=== PATIENT | female | born 1990 | race Two or more races ===

== ENCOUNTER 2021-10-14 13:09 | Outpatient (REF) | payer OTHER, SELFPAY ==
[2021-10-14 13:51] LABS: Hematocrit 42.3 % (37.0-47.0); Hemoglobin 14.1 g/dl (12.0-16.0); Mean Corpuscular HGB Conc 33.3 g/dl (31.0-35.0); Mean Corpuscular Hemoglobin 29.3 pg (27.0-33.0); Mean Corpuscular Volume 87.9 fL (80.0-98.0); Mean Platelet Volume 9.5 fL (9.4-12.3); Platelet Count 298 X10*3/uL (160-400); Red Blood Count 4.81 X10*6/uL (4.20-5.50); Red Cell Distribution Width 13.3 % (11.0-16.0); White Blood Count 5.2 X10*3/uL (4.8-10.8)
[2021-10-14 14:12] LABS: Alanine Aminotransferase 15 U/L (0-31); Albumin Level 4.5 g/dL (3.5-5.0); Alkaline Phosphatase 74 U/L (39-117); Anion Gap 11 (12-20); Aspartate Amino Transferase 14 U/L (5-31); Bilirubin Total 0.6 mg/dL (0.0-1.0); Blood Urea Nitrogen 16 mg/dL (9-16); Calcium 9.7 mg/dL (8.4-10.2); Carbon Dioxide 27 mmol/L (22-29); Chloride 103 mmol/L (96-108); Estimated Glomerular Filt Rate > 60; Glucose Random 96 mg/dL (60-115); Potassium 3.6 mmol/L (3.3-5.1); Sodium 137 mmol/L (135-145); Total Protein 7.7 g/dL (6.5-8.0)
== END 2021-10-14 13:10 | disposition home or self-care (01) ==
LOC: HO.HMGCLDS 13:09
PROVIDERS: PCP Internal Medicine; Visit Provider Physician Assistant
DX: R42 Dizziness and giddiness (principal)
CPT/HCPCS: 36415; 80053; 84443; 85027

== ENCOUNTER 2022-03-08 11:10 | Outpatient (REF) | payer OTHER, SELFPAY ==
[2022-03-09 04:41] LABS: HBS Num1 108.52 mIU/mL (0-7.99); ~Hepatitis B Surface Antibody REACTIVE (Nonreactive)
[2022-03-10 00:37] LABS: Rubella IgG Antibody 5.81 Index
== END 2022-03-08 11:11 | disposition home or self-care (01) ==
LOC: HO.HMGCLDS 11:10
PROVIDERS: PCP Internal Medicine; Visit Provider Internal Medicine
DX: Z02.1 Encounter for pre-employment examination (principal)
CPT/HCPCS: 36415; 86706; 86735; 86762; 86765

== ENCOUNTER → 2022-10-25 09:05 | Outpatient (REF) | payer OTHER, SELFPAY | LOC: HO.SL 09:05 | PROVIDERS: PCP Internal Medicine; Visit Provider Internal Medicine | DX: G47.30 Sleep apnea, unspecified (principal) | CPT/HCPCS: 95806 ==

== ENCOUNTER 2023-06-06 12:25 | Outpatient (AMB) | payer OTHER, SELFPAY ==
--- NOTE | 2023-06-06 14:52 | AM.OFFWIN_ITS ---
Intake Vital Signs 06/06/23 14:59 Height 51 ft Weight 190 lb BMI 0.4 BP 120/70 Blood Pressure Location Lt brachial Position Sitting Pulse 76 Pulse Source Pulse Oximeter Temp 97.8 F Temp Source Temporal Artery Scan Pulse Oximetry (%) 98 Oxygen Delivery Method Room Air Intake Visit Reasons: EST/dizziness, headaches (lobby) Intake Note: pt is here for c/o dizziness, headaches. patient was evaluated in ED, they told her she needed to follow up with her pcp and she came to walk in Patient Tobacco Use Status: Never used Tobacco Allergies kiwi Allergy (Intermediate, Verified 06/11/23 16:55) throat itching, tongue swelling doxycycline [DOXYCYCLINE] Allergy (Unknown, Verified 06/11/23 16:55) HIVES penicillin V Allergy (Unknown, Verified 06/11/23 16:55) hives Penicillins [PENICILLINS] Allergy (Unknown, Verified 06/11/23 16:55) HIVES Sulfa (Sulfonamide Antibiotics) Allergy (Unknown, Verified 06/11/23 16:55) rash sulfamethoxazole [From BACTRIM] Allergy (Unknown, Verified 06/11/23 16:55) HIVES trimethoprim [From BACTRIM] Allergy (Unknown, Verified 06/11/23 16:55) HIVES Medication List - Last Reconciled 06/11/23 by Deniz Palm MD meclizine 12.5 mg PO TID PRN Do you need a note to return to daycare/school/sports/work: Yes HPI EST/dizziness, headaches (lobby) HPI Details 32-[facility]-old [facility] She was seen in the emergency room at [facility] yesterday. She went to the hospital after she reports she had a seizure. She reports that her seizure was witnessed. Was seen in the [facility] emergency room. A CT scan and routine blood work was unremarkable. She was given a appointment with [facility] urology and discharged. Patient reports that she is continuing to feel dizzy and tired. Because of her new diagnosis she cannot drive. 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 [facility] Medical History Dyshidrotic eczema Kidney stones Lumbar back pain Sleep apnea Family History Mother Diabetes Father Diabetes HTN (hypertension) Maternal Grandmother CVD (cardiovascular disease) Maternal Grandfather Alzheimer disease Social History Household Members Other:: 3 children, 6 yr, 3 yr 2 month old baby Housing: Apartment Alcohol intake: current Alcohol intake frequency: does not drink Patient Tobacco Use Status: Never used Tobacco e-Cigarette/Vaping Use: Never Used Current occupational status: employed Cognitive needs: No Hearing needs: No Vision needs: Yes Physical Exam Vital Signs: Last Vital Signs Temp 97.8 F 06/06/23 14:59 Pulse 76 06/06/23 14:59 BP 120/70 06/06/23 14:59 Pulse Ox 98 06/06/23 14:59 Oxygen Delivery Method Room Air 06/06/23 14:59 BMI result Body Mass Index 0.4 Const General: cooperative and healthy appearing Nutritional Appearance: well nourished Orientation/consciousness: patient oriented x3 Limitations: no limitations HEENT Head: Yes normal to inspection Eyes General: appearance normal, both eyes and all related structures Neck Neck: Yes normal visual inspection Chest Chest palpation & inspection: normal palpation of entire chest wall Resp Effort & Inspection: normal respiratory effort Neuro General: patient oriented x3 Cranial nerves: Yes CN's II-XII intact bilaterally Gait exam (Neuro): Normal gait present Motor exam (neuro): 5/5 motor strength present throughout Deep tendon reflexes (DTR's): Right triceps reflex intensity grade: 2+, Left triceps reflex intensity grade: 2+, Rt Biceps (C5, C6): 2+, Left biceps reflex intensity grade: 2+, Right patellar reflex intensity grade: 2+, Left patellar reflex intensity grade: 2+, Right ankle reflex intensity grade: 2+ and Left ankle reflex intensity grade: 2+ Assessment & Plan Assessment & Plan (1) Vertigo: Code(s): R42 - Dizziness and giddiness Plan: Her repeat neurological exam was unremarkable. Patient was advised to follow-up with [facility] neurology. She was encouraged to follow-up with her primary care for decision making regarding her work and ability to drive. Coding Level of Care Code Est Pt Level 3 (45286) Diagnoses Vertigo R42
[2023-06-06 14:59] VITALS: BP 120/70; PULSE 76; TEMP 36.6; O2SAT 98
== END 2023-06-06 16:10 | disposition home or self-care (01) ==
PROVIDERS: PCP Internal Medicine; Visit Provider Internal Medicine
DX: R42 Dizziness and giddiness (principal)
CPT/HCPCS: 99213

== ENCOUNTER 2023-06-19 08:30 | Outpatient (AMB) | payer OTHER, SELFPAY ==
[2023-06-19 08:34] VITALS: BP 110/70; PULSE 100; O2SAT 98; BMI 37.3
--- NOTE | 2023-06-19 08:34 | A.OFFPC_ITS ---
Vital Signs 06/19/23 08:34 Height 5 ft Weight 191 lb BMI 37.3 BP 110/70 Blood Pressure Location Lt brachial Position Sitting Pulse 100 Pulse Source Pulse Oximeter Pulse Oximetry (%) 98 Oxygen Delivery Method Room Air Intake Visit Reasons: [employer], Seizure like activities, 06/03 Intake Note: Pt is here today for ER follow up visit. Allergies kiwi Allergy (Intermediate, Verified 06/19/23 08:36) throat itching, tongue swelling doxycycline [DOXYCYCLINE] Allergy (Unknown, Verified 06/19/23 08:36) HIVES penicillin V Allergy (Unknown, Verified 06/19/23 08:36) hives Penicillins [PENICILLINS] Allergy (Unknown, Verified 06/19/23 08:36) HIVES Sulfa (Sulfonamide Antibiotics) Allergy (Unknown, Verified 06/19/23 08:36) rash sulfamethoxazole [From BACTRIM] Allergy (Unknown, Verified 06/19/23 08:36) HIVES trimethoprim [From BACTRIM] Allergy (Unknown, Verified 06/19/23 08:36) HIVES Medication List - Last Reconciled 06/19/23 by Luci Ny MD meclizine 12.5 mg PO TID PRN Tobacco use date assessed: 06/19/23 Dental Screening Dental Screen Date: 06/19/23 Did you have a dental visit in the last 12 months?: Yes Did you have a dental problem in the last 6 months where you did not have access to dental care?: No Was dental information given to patient?: Patient has dentist HPI [facility], Seizure like activities, 06/03 HPI Details Pt presents for f/u of [facility] ER visit. Pt had an episode of unresponsiveness and shakiness while sitting playing michelle lasted a few mins witnessed by her friend. She denies fall,head trauma, control loss of bowel or bladder. Patient fell the headache before the episode and some nausea after the episode. ER workup including brain CT basic labs EKG were normal. Patient has not had any recurrent symptoms for the last 2 weeks. 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 Patient called [facility] Neurology office to schedule an appointment but was advised to have brain MRI, EEG and Holter before the visit [facility] Medical History Dyshidrotic eczema Kidney stones Lumbar back pain Sleep apnea Family History Mother Diabetes Father Diabetes HTN (hypertension) Maternal Grandmother CVD (cardiovascular disease) Maternal Grandfather Alzheimer disease Household Members Other:: 3 children, 6 yr, 3 yr 2 month old baby Housing: Apartment Alcohol intake: current Alcohol intake frequency: does not drink Patient Tobacco Use Status: Never used Tobacco e-Cigarette/Vaping Use: Never Used Current occupational status: employed Cognitive needs: No Hearing needs: No Vision needs: Yes Questionnaire Thrive Questionnaire Date Thrive assessed: 10/21/21 I am a: Patient What is your living situation today?: I have a steady place to live Within the past 12 months, did the food you bought not last and you didn't have the money to get more?: Never true Within the past 12 months, did you worry whether your food would run out before you got money to buy more?: Sometimes True Please select the resources that you would like help with: None AUDIT C Alcohol Use Questionnaire (AUDIT-C) 1. How often do you have a drink containing alcohol?: 2-4 times a month 2. How many drinks containing alcohol do you have on a typical day when you are drinking?: 1 or 2 3. How often do you have six or more drinks on one occasion?: Never Total Score: 2 DONTRELL-7 AMB Questionnaire DONTRELL-7 Date DONTRELL - 7 assessed: 10/21/21 Feeling nervous, anxious, or on edge: 1 = Several days Not being able to stop or control worryin = Several days Worrying too much about different things: 1 = Several days Trouble relaxin = Several days Being so restless that it is hard to sit still: 0 = Not at all Becoming easily annoyed or irritable: 1 = Several days Feeling afraid as if something awful might happen: 0 = Not at all Total DONTRELL-7 score (0-4 normal; 5-9 mild; 10-14 moderate; 15-21 severe): 5 Source: Developed by Drs. Benjamin Alvarez, Nanci Child, Oscar Dooley and colleagues, with an educational elizabeth from [employer]. Review of Systems Const All systems reviewed & are unremarkable except as noted in HPI and below Reports no additional complaints Eyes Reports no additional complaints ENT Reports no additional complaints Card Reports no additional complaints Resp Reports no additional complaints GI Reports no additional complaints Reports no additional complaints Physical exam (Primary Care) Vital Signs: Last Vital Signs Pulse 100 06/19/23 08:34 BP 110/70 06/19/23 08:34 Pulse Ox 98 06/19/23 08:34 Oxygen Delivery Method Room Air 06/19/23 08:34 BMI result Body Mass Index 37.3 Tobacco/Smoking Status: Tobacco use Status Tobacco use date assessed 06/19/23 06/19/23 08:38 Patient Tobacco Use Status Never used Tobacco 06/19/23 08:38 e-Cigarette/Vaping Use Never Used 06/19/23 08:34 Thrive Assessment: Date of Thrive Assessment Date Thrive assessed 10/21/21 06/19/23 08:34 Const General: no acute distress HENMT Ears: hearing grossly normal bilaterally Mouth: Normal oral and palatal mucosa present Eyes General: appearance normal, both eyes and all related structures Visual Fermin: normal visual fermin by confrontation EOM: EOMs intact bilaterally Neck Neck: Yes no lymphadenopathy and Yes supple Resp Effort & Inspection: normal respiratory effort Auscultation: clear to auscultation bilaterally Cardio Rhythm: regular rhythm Heart sounds: S1 normal heart sound present and S2 normal heart sound present GI Inspection: Yes normal to inspection Palpation (GI): Soft to palpation Percussion: Yes normal to percussion Auscultation: normal bowel sounds Neuro Cranial nerves: Yes CN's II-XII intact bilaterally Gait exam (Neuro): Normal gait present Motor exam (neuro): 5/5 motor strength present throughout Coordination: [id number] test normal Romberg Test: Negative Extrem General: Yes no clubbing, cyanosis or edema Assessment and Plan Assessment & Plan (1) Seizure: Code(s): R56.9 - Unspecified convulsions Plan: check brain MRI, EEG , Holter refer to neurlogy if positive Orders: Orders EEG awake and asleep Today R56.9 - Unspecified convulsions MR head/brain wo con Today R56.9 - Unspecified convulsions ECG 3 day holter monitor Today R56.9 - Unspecified convulsions Coding Level of Care Code Est Pt Level 4 (93738) Diagnoses Seizure R56.9
== END 2023-06-19 11:27 | disposition home or self-care (01) ==
PROVIDERS: PCP Internal Medicine; Visit Provider Internal Medicine
DX: R56.9 Unspecified convulsions (principal)
CPT/HCPCS: 99214

== ENCOUNTER 2023-06-27 07:53 | Outpatient (REF) | payer OTHER, SELFPAY ==
--- NOTE | 2023-06-27 07:56 | EEG_ITS ---
FINDINGS: The waking background activity consists of a moderate voltage, well-defined 10 hertz posterior alpha frequency intermixed anteriorly with low-voltage fast frequencies. No drowsiness or sleep stages are identified. Photic stimulation is without activation. Hyperventilation was performed with fair effort but no change in background activity. No focal, lateralizing, or paroxysmal discharges are seen. IMPRESSION: This waking EEG is within normal limits. MD JOSEPH Mosquera/MARY ELLEN / [id number]
== END 2023-06-27 07:54 | disposition home or self-care (01) ==
LOC: HO.NEURO 07:53
PROVIDERS: Visit Provider Internal Medicine
DX: R56.9 Unspecified convulsions (principal)
CPT/HCPCS: 95816

== ENCOUNTER 2023-08-04 11:39 | Outpatient (AMB) | payer OTHER, SELFPAY ==
[2023-08-04 11:42] VITALS: BP 104/66; PULSE 96; O2SAT 97; BMI 37.7
--- NOTE | 2023-08-04 11:42 | MHC.PC.OV ---
Vital Signs 08/04/23 11:42 Height 5 ft Weight 193 lb BMI 37.7 BP 104/66 Blood Pressure Location Rt brachial Position Sitting Pulse 96 Pulse Source Pulse Oximeter Pulse Oximetry (%) 97 Oxygen Delivery Method Room Air Intake Visit Reasons: Follow up FMLA Intake Note: Pt is here today for a follow up visit to have FMLA fill out. Allergies kiwi Allergy (Intermediate, Verified 08/04/23 11:44) throat itching, tongue swelling doxycycline [DOXYCYCLINE] Allergy (Unknown, Verified 08/04/23 11:44) HIVES penicillin V Allergy (Unknown, Verified 08/04/23 11:44) hives Penicillins [PENICILLINS] Allergy (Unknown, Verified 08/04/23 11:44) HIVES Sulfa (Sulfonamide Antibiotics) Allergy (Unknown, Verified 08/04/23 11:44) rash sulfamethoxazole [From BACTRIM] Allergy (Unknown, Verified 08/04/23 11:44) HIVES trimethoprim [From BACTRIM] Allergy (Unknown, Verified 08/04/23 11:44) HIVES Medication List - Last Reconciled 08/04/23 by Luci Ny MD meclizine 12.5 mg PO TID PRN Tobacco use date assessed: 08/04/23 Dental Screening Dental Screen Date: 08/04/23 Did you have a dental visit in the last 12 months?: Yes Did you have a dental problem in the last 6 months where you did not have access to dental care?: No Was dental information given to patient?: Patient has dentist HPI Follow up FMLA HPI Details Pt presents for follow-up of history of episode of unconsciousness question of seizure like activity on 06/03 followed by the visit to [facility] ER. Patient denies any recurrent symptoms of loss of consciousness but reports frequent symptoms of lightheadedness and vertigo like sensation and daily headaches. She has been taking meclizine with good relief in at least every other day. Pt had normal EEG, brain MR. Her insurance requested referral to Cardiology in order to cover extended Holter monitoring. Patient is waiting for an appointment with Cardiology. She has been out of work since May and not being able to drive a car because of ER recommendation. [facility] Medical History Dyshidrotic eczema Kidney stones Lumbar back pain Sleep apnea Family History Mother Diabetes Father Diabetes HTN (hypertension) Maternal Grandmother CVD (cardiovascular disease) Maternal Grandfather Alzheimer disease Social History Household Members Other:: 3 children, 6 yr, 3 yr 2 month old baby Housing: Apartment Alcohol intake: current Alcohol intake frequency: does not drink Patient Tobacco Use Status: Never used Tobacco e-Cigarette/Vaping Use: Never Used Current occupational status: employed Cognitive needs: No Hearing needs: No Vision needs: Yes Questionnaire PHQ-9 Over the last 2 weeks, how often have you been bothered by any of the following problems? 1. Little interest or pleasure in doing things: not at all 2. Feeling down, depressed, or hopeless: not at all 3. Trouble falling or staying asleep, or sleeping too much: more than half the days 4. Feeling tired or having little energy: more than half the days 5. Poor appetite or overeating: not at all 6. Feeling bad about yourself - or that you are a failure or have let yourself or your family down: not at all 7. Trouble concentrating on things, such as reading the newspaper or watching television: more than half the days 8. Moving or speaking so slowly that other people could have noticed. Or the opposite - being so fidgety or restless that you have been moving around a lot more than usual: not at all 9. Thoughts that you would be better off or of hurting yourself in some way: not at all Total score: 6 Depression Screening Interpretation: Negative Depression Screening Done: Yes Source: Developed by Drs. Benjamin Alvarez, Nanci Child, Oscar Dooley and colleagues, with an educational elizabeth from [email or web address]. Thrive Questionnaire Date Thrive assessed: 08/04/23 I am a: Patient What is your living situation today?: I have a steady place to live Within the past 12 months, did the food you bought not last and you didn't have the money to get more?: Never true Within the past 12 months, did you worry whether your food would run out before you got money to buy more?: Never true Do you have trouble paying for medicines?: No Do you have trouble getting transportation to medical appointments?: No Do you have trouble paying your heating and electricity bill?: No Do you have trouble taking care of your child, family member or friend?: No Do you have trouble with day-to-day activities such as bathing, preparing meals, shopping, managing finances, etc.?: No Are you currently unemployed and looking for a job?: No Are you interested in more education?: No Please select the resources that you would like help with: None AUDIT C Alcohol Use Questionnaire (AUDIT-C) 1. How often do you have a drink containing alcohol?: Monthly or less 2. How many drinks containing alcohol do you have on a typical day when you are drinking?: 1 or 2 3. How often do you have six or more drinks on one occasion?: Never Total Score: 1 DONTRELL-7 AMB Questionnaire DONTRELL-7 Date DONTRELL - 7 assessed: 08/04/23 Feeling nervous, anxious, or on edge: 1 = Several days Not being able to stop or control worryin = Several days Worrying too much about different things: 1 = Several days Trouble relaxin = Several days Being so restless that it is hard to sit still: 0 = Not at all Becoming easily annoyed or irritable: 1 = Several days Feeling afraid as if something awful might happen: 0 = Not at all Total DONTRELL-7 score (0-4 normal; 5-9 mild; 10-14 moderate; 15-21 severe): 5 Source: Developed by Drs. Benjamin Alvarez, Nanci Child, Oscar Dooley and colleagues, with an educational elizabeth from [email or web address]. Review of Systems Const All systems reviewed & are unremarkable except as noted in HPI and below Reports no additional complaints Eyes Reports no additional complaints ENT Reports no additional complaints Card Reports no additional complaints Resp Reports no additional complaints GI Reports no additional complaints Reports no additional complaints Physical exam (Primary Care) Vital Signs: Last Vital Signs Pulse 96 08/04/23 11:42 BP 104/66 08/04/23 11:42 Pulse Ox 97 08/04/23 11:42 Oxygen Delivery Method Room Air 08/04/23 11:42 BMI result Body Mass Index 37.7 Tobacco/Smoking Status: Tobacco use Status Tobacco use date assessed 08/04/23 08/04/23 11:47 Patient Tobacco Use Status Never used Tobacco 08/04/23 11:47 e-Cigarette/Vaping Use Never Used 08/04/23 11:47 PHQ-9: PHQ-9 Score PHQ-9: Total score 6 08/04/23 11:47 Depression Screening Interpretation: Negative Thrive Assessment: Date of Thrive Assessment Date Thrive assessed 08/04/23 08/04/23 11:47 Const General: no acute distress HENMT Ears: hearing grossly normal bilaterally General nose exam: Normal external nose present Face and sinus: Yes normal facial exam Mouth: Normal oral and palatal mucosa present Eyes General: appearance normal, both eyes and all related structures Neck Neck: Yes supple Resp Effort & Inspection: normal respiratory effort Auscultation: clear to auscultation bilaterally Cardio Rhythm: regular rhythm Heart sounds: S1 normal heart sound present and S2 normal heart sound present GI Inspection: Yes normal to inspection Palpation (GI): Soft to palpation Percussion: Yes normal to percussion Auscultation: normal bowel sounds Neuro General: CN's II-XI intact bilaterally Cognition (Neuro): normal cognition Gait exam (Neuro): Normal gait present Motor exam (neuro): 5/5 motor strength present throughout Romberg Test: Negative Assessment and Plan Assessment & Plan (1) Seizure: Comment: Short loss of consciousness 06/15,[facility] ER visit, EEG 07/15, brain MR 07/15 Code(s): R56.9 - Unspecified convulsions Plan: Refer to neurology for clearance to return back to work and driving. Out of work note until September 04 (2) Dizziness: Code(s): R42 - Dizziness and giddiness Plan: For recurrent episodes of vertigo patient will be referred to vestibular therapy. She was advised to maintain good hydration Orders: Orders PT Evaluation and Treatment Today R42 - Dizziness and giddiness Referrals Neurology Referral R42 - Dizziness and giddiness, R56.9 - Unspecified convulsions Coding Level of Care Code Est Pt Level 4 (18598) Diagnoses Seizure R56.9 Dizziness R42
== END 2023-08-04 12:20 | disposition home or self-care (01) ==
PROVIDERS: PCP Internal Medicine; Visit Provider Internal Medicine
DX: R56.9 Unspecified convulsions (principal); R42 Dizziness and giddiness
CPT/HCPCS: 99214

== ENCOUNTER 2023-08-18 12:35 | Outpatient (AMB) | payer OTHER, SELFPAY ==
--- NOTE | 2023-08-18 12:40 | A.OFFVIS_ITS ---
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 pt reports not having the palpitations at the moment. Gut Snatcher Required: No Accompanied by: Self / Same As Patient Allergies kiwi Allergy (Intermediate, Verified 08/04/23 11:44) throat itching, tongue swelling doxycycline [DOXYCYCLINE] Allergy (Unknown, Verified 08/04/23 11:44) HIVES penicillin V Allergy (Unknown, Verified 08/04/23 11:44) hives Penicillins [PENICILLINS] Allergy (Unknown, Verified 08/04/23 11:44) HIVES Sulfa (Sulfonamide Antibiotics) Allergy (Unknown, Verified 08/04/23 11:44) rash sulfamethoxazole [From BACTRIM] Allergy (Unknown, Verified 08/04/23 11:44) HIVES trimethoprim [From BACTRIM] Allergy (Unknown, Verified 08/04/23 11:44) HIVES Medication List - Last Reconciled 08/18/23 by TAHIR Cifuentes meclizine 12.5 mg PO TID PRN 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 Her evaluation showed no acute findings. Outpt MRI of brain was normal. She was referred to cardiology by PCP for report of heart palpitations. Today she presents for cardiology consultation. She reports no recurrent seizure type activity since her event in May. She tells me on the day of that event she was sitting at a table with her friend playing dominoes. She was experiencing a significant headache. She then remembers putting her head down and the next minute she was lifting her head up and her friend was looking at her in the face. Her friend witnessed body movements suggestive of seizure activity. Angelique was described as being pale. She remembers being weak and diaphoretic. Her ER evaluation revealed no significant findings. She tells me that for the whole next week she experienced lightheadedness and spent a lot of time in bed. Since then she has not had any recurrent events. She does have periodic dizziness which she believes is vertigo. She takes her meclizine and it helps. No chest discomfort at rest or with activity. No shortness of breath, presyncope, syncope, PND, orthopnea or edema. She feels intermittent heart palpitations like her heart is beating fast. It can last for minutes to hours. She is unsure of anxiety contributes. She has not had concerns that this was SVT. She has been going to the gym periodically and was using the treadmill. She noticed increased lightheadedness with treadmill walking. She stopped doing that and now uses the machines. 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 She has been out of work since May, since she can not drive for 6 months following a syncopal event. She tells me the brain MRI and EEG both came out normal. She has a neurology follow-up in October 2023. Nonsmoker, oc casional alcohol use. No family history of heart disease. [facility] Medical History Sleep apnea Lumbar back pain Dyshidrotic eczema Kidney stones Family History Mother Diabetes Father Diabetes HTN (hypertension) Maternal Grandmother CVD (cardiovascular disease) Maternal Grandfather Alzheimer disease Social History Household Members Other:: 3 children, 6 yr, 3 yr 2 month old baby Housing: Apartment Alcohol intake: current Alcohol intake frequency: does not drink Patient Tobacco Use Status: Never used Tobacco e-Cigarette/Vaping Use: Never Used Current occupational status: employed Cognitive needs: No Hearing needs: No Vision needs: Yes Review of Systems Const No All systems reviewed & are unremarkable except as noted in HPI and below Denies chills, Denies daytime sleepiness, Denies difficulty sleeping, Denies fatigue, Denies fever(s), Denies frequent falls, Denies weight gain and Denies weight loss Eyes Denies blurry vision, Denies change in vision, Denies loss of vision, Denies other visual disturbances and Denies eye pain ENT Denies dysphagia and Reports dizziness Card Denies chest pain, Denies chest pain at rest, Denies chest pain with activity, Denies syncope, Reports rapid heart rate, Denies leg edema, Reports lightheadedness, Denies dyspnea and Denies dyspnea on exertion Resp Denies cough, Denies dyspnea, Denies dyspnea on exertion and Reports other GI Denies abdominal pain, Denies dysphagia, Denies nausea and Denies vomiting Musc Denies back pain, Denies myalgias, Denies muscle weakness and Reports other Neuro Reports dizziness, Denies syncope, Denies frequent falls and Denies loss of vision Psych Denies anxiety Endo Denies fatigue Physical Exam Vital Signs: BMI result Body Mass Index 37.5 Const General: cooperative, healthy appearing, comfortable and no acute distress HEENT Head: Yes normal to inspection Neck Neck: Yes normal visual inspection and Yes no JVD Resp Effort & Inspection: normal respiratory effort Auscultation: clear to auscultation bilaterally, no rales, no rhonchi and no wheezes Cardio Jugular venous distension: no JVD Rate: regular rate Rhythm: regular rhythm Heart sounds: S1 normal heart sound present, S2 normal heart sound present, no gallops, no murmurs and no rubs Extrem General: Yes normal to inspection, No no pedal edema and No calf tenderness Psych Appearance: grossly normal Mental Status: mental status grossly normal Speech and movement: Normal speech and movement present Office Procedures EKG Details: Today, read me, normal sinus rhythm, right axis deviation, QTC 439 milliseconds, rate 69 [id number], Complete Assessment & Plan Assessment & Plan (1) Palpitations: Code(s): R00.2 - Palpitations Plan: Reports of heart palpitations like her heart is beating fast. No sudden start and stop of this sensation. It does not correlate with her lightheadedness. She did have seizure-type activity as above however EEG reported as normal. She is never had syncope in the past. ER note states this could be possible convulsive syncope. EKG done today showing normal sinus rhythm with no acute ST or T-wave abnormalities, normal PA, QRS and QTC intervals. Will check a Holter monitor to assess for any arrhythmia. Will check an echocardiogram to assess for any structural heart disease. Recommended good hydration, get adequate rest, physical activity as tolerated. Cardiology follow-up in 1 month, sooner if needed. (2) Dizziness: Code(s): R42 - Dizziness and giddiness Plan: Reports of intermittent lightheadedness. Patient has been previously diagnosed by another provider with vertigo. She does take meclizine as needed and tells me that it does help. She has not had any presyncope, syncope, falls. Continue current management (3) Vertigo: Code(s): R42 - Dizziness and giddiness Plan: As above (4) Seizure: Comment: Short loss of consciousness 06/15,[facility] ER visit, nl EEG 07/15, nl brain MR 07/15 Code(s): R56.9 - Unspecified convulsions Plan: As above Plan Time spent on chart review, documentation, interview assessment Orders: Orders ECG 3 day holter monitor Today R00.2 - Palpitations, R56.9 - Unspecified convulsions CA echo transthoracic complete Today R00.2 - Palpitations, R56.9 - Unspecified convulsions Coding Level of Care Code New Pt Level 4 (12924) Diagnoses Palpitations R00.2 Dizziness R42 Vertigo R42 Seizure R56.9 CPT Codes EKG - CPT: [id number], Complete ([id number]) Time Spent (min) 28
[2023-08-18 12:41] VITALS: BP 110/60; PULSE 69; BMI 37.5
== END 2023-08-18 13:14 | disposition home or self-care (01) ==
PROVIDERS: PCP Internal Medicine; Visit Provider Nurse Practitioner Family
DX: R00.2 Palpitations (principal); R42 Dizziness and giddiness; R56.9 Unspecified convulsions
CPT/HCPCS: 93010; 99204

== ENCOUNTER → 2023-08-18 12:35 | Outpatient (BNVA) | payer OTHER, SELFPAY | PROVIDERS: PCP Internal Medicine; Visit Provider Nurse Practitioner Family | DX: R00.2 Palpitations (principal); R42 Dizziness and giddiness; R56.9 Unspecified convulsions | CPT/HCPCS: 93005; 99202 ==

== ENCOUNTER → 2023-10-23 11:02 | Outpatient (REF) | payer OTHER, SELFPAY ==
--- NOTE | 2023-10-23 11:06 | CA_ITS ---
Transthoracic Echocardiogram Patient (Last, First, Middle): Angelique Borja, Gender: Female Date of : 1990 Age: 32 Procedure Date: 10/23/2023 Procedure Type: Transthoracic Echocardiogram Location: OP Height: 154.94 cm Weight: 86.18 kg BSA: 1.85 m2 Heart Rate: 78 bpm BP: 110 / 70 mmHg Revenue Cycle Consultant: TIFFANIE Logan MD: Shalini Hameed PUBLICITY PERSON-C University Registrar: Duran Suero MD Symptoms: R00.2 - Palpitations Study Quality: Fair ECG Rhythm: Sinus Conclusions: - Essentially normal study Findings Left Ventricle Normal left ventricular size, thickness, and systolic function. The visually estimated ejection fraction is between 55-60%. Diastolic function is normal for age. Prominent LVfalse tendon noted, normal variant. Peak GLS is 17.2%, borderline low. Right Ventricle Normal right ventricular cavity size and systolic function. Atria Both atria are normal in size. There is no evidence of interatrial shunt. Aortic Valve Normal aortic valve structure and function. There is no aortic valve stenosis. There is no aortic valve regurgitation. Mitral Valve Normal mitral valve structure and function. There is trace mitral valve regurgitation. There is no mitral valve stenosis. Pulmonic Valve The pulmonic valve is likely normal. Tricuspid Valve Normal tricuspid valve structure. Tricuspid regurgitation envelope is inadequate for calculation of right ventricular systolic pressure. Normal right atrial pressure. There is no evidence of pulmonary hypertension. Great Vessels All visible segments of the aorta are normal in size. The visualized portions of the pulmonary artery and branches are normal. Venous The inferior vena cava is normal in size and collapses greater than 50% with inspiration. Pericardium/Pleural There is no evidence of pericardial effusion. Prior Study Comparison No prior study available for comparison. Measurements 2D Linear Measurements IVSd: 0.90 0.6-0.9/0.6-1.0 cm LVIDd: 4.38 3.9-5.3/4.2-5.9 cm LVIDd Index: 2.37 2.4-3.2/2.2-3.1 cm/m2 LVIDs: 3.09 2.0-3.6 cm LVPWd: 0.82 0.7-1.1 cm LA Diam: 3.30 2.7-3.8/3.0-4.0 cm LAIDs Index: 1.78 1.5-2.3 cm/m2 LV Mass: 148.67 67-162/88-224 g LV Mass Index: 80.36 43-95/49-115 g/m2 LVOT Diam: 1.90 3.0+(-)1.3 cm 2D Systolic Function EF 4C: 60.30 >55% EF 2C: 59.60 >55% EF BiP: 59.20 >55% Mitral Valve MV Pk E: 0.88 MV PK A: 0.55 MV Decel Time: 166.00 E/A: 1.60 E'Lateral: 12.40 E'Medial: 8.81 E/E' Med: 10.00 E/E' Lat: 7.10 PHT: 49.00 MVA PHT: 4.49 Decel [place]: 5.28 Aortic Valve AoV Pk Hung: 1.22 AoV Mn Hung: 0.91 AoV VTI: 0.25 AoV Pk Grad: 6.00 Aov Mn Grad: 4.00 DONNA Cont.VTI: 2.35 LVOT LVOT Pk Hung: 1.03 LVOT Mn Hung: 0.72 LVOT VTI: 0.20 LVOT Pk Grad: 4.00 LVOT Mn Grad: 2.00 LVOT Diam: 1.90 LVOT Area: 2.84 Diastolic Function MV Pk E: 0.88 MV Pk A: 0.55 E/A: 1.60 E'Medial: 8.81 E/E' Med: 10.00 E' Laterial: 12.40 E/E' Lat: 7.10 Right Ventricle TAPSE (mm): 22.40 TVS' Hung: 11.50 Tricuspid Valve RA Press: 3.00 Great Vessels Aorta Sinus of Valsalva: 2.90 2.0-3.5 cm Ao Asc: 2.50 2.1-3.4 cm Pulmonary Valve PV Pk Hung: 0.96 Peak PV Grad: 4.00 Updated in Other Vendor System with Status of Final Duran Suero MD electronically signed on 10/23/2023 3:35:36 PM with status of Final
--- NOTE | 2023-10-23 11:06 | HM_ITS ---
Conclusion: 1. Patient was monitored for total period of 3 days 2. Baseline was normal sinus with average heart of 92 beats per minute 3. Frequent sinus tachycardia noted with 28% of time heart rate about 100 beats per minute 4. No significant pauses or arrhythmias noted 5. 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
== END ==
LOC: HO.CARD 11:02
PROVIDERS: PCP Internal Medicine; Visit Provider Nurse Practitioner Family
DX: R00.2 Palpitations (principal); R56.9 Unspecified convulsions
CPT/HCPCS: 93242; 93306; 93356

== ENCOUNTER → 2023-10-23 11:06 | Outpatient (BNV) | payer OTHER, SELFPAY | PROVIDERS: PCP Internal Medicine; Visit Provider Internal Medicine Cardiovascular Disease | DX: R00.0 Tachycardia, unspecified (principal) | CPT/HCPCS: 93244; 93306; 93356 ==

== ENCOUNTER 2023-10-26 10:04 | Outpatient (AMB) | payer OTHER, SELFPAY ==
--- NOTE | 2023-10-26 10:07 | A.OFFVIS_ITS ---
Intake Vital Signs 10/26/23 10:08 Height 5 ft Weight 198 lb BMI 38.7 BP 120/76 Blood Pressure Location Rt brachial Position Sitting Pulse 88 Pulse Source Pulse Oximeter Pulse Oximetry (%) 99 Oxygen Delivery Method Room Air Intake Visit Reasons: INP-Convulsions/Dizziness & giddines-LVM Intake Note: Patient presents for convulsions and dizziness. I had an episode last May for the first time and I havn't had them since. Allergies kiwi Allergy (Intermediate, Verified 11/02/23 08:48) throat itching, tongue swelling doxycycline [DOXYCYCLINE] Allergy (Unknown, Verified 11/02/23 08:48) HIVES penicillin V Allergy (Unknown, Verified 11/02/23 08:48) hives Penicillins [PENICILLINS] Allergy (Unknown, Verified 11/02/23 08:48) HIVES Sulfa (Sulfonamide Antibiotics) Allergy (Unknown, Verified 11/02/23 08:48) rash sulfamethoxazole [From BACTRIM] Allergy (Unknown, Verified 11/02/23 08:48) HIVES trimethoprim [From BACTRIM] Allergy (Unknown, Verified 11/02/23 08:48) HIVES Medication List - Last Reconciled 10/26/23 by Anya Bhatia, GOSIA meclizine 12.5 mg PO TID PRN HPI HPI Comments History of Present Illness Details Right-handed 32-yr-old female presents for new pt evaluation of possible siezure. Pt reports that in May 2023, she was sitting down playing dominos, felt a very bad frontal headache coming on, had to stop talking, put her head down, and closed her eyes. Her friend told her she became pale, she clenched her fists and started shaking and unresponsive x's 1 minute. No intraictal tongue biting or urinary/bowl incontinence. She did not fall over. Her friend checked her BP w/ a wrist cuff- SBP > 200. After she came to, she felt confusion, clammy, she tried to stand up but her gait was off, she was nauseous, and about 10 minutes later she vomited. She went to [facility] ER, Head CT w/o, and Head/Neck CTA- NL. After the episode, she felt very drained, low-energy, increased dizziness- off- balanced x's 1.5 weeks. And this subsided gradually. Follow-up EEG and brain MRI w/o- normal. She is seeing cardiology- Echocardiogram- normal. Currently wearing a holter monitor. Pt reports normal gestational and early development. PMH is significant for: Palpitations Pt also endorses:? Vertigo a/w off-balance, diplopia- if she moves to quickly, sometimes can trigger headache. Triggers- not eating. Has never had vestibular tx. Motion sickness- depending on the situation. Lightheadedness, can have w/wo orthostatic changes. Headaches- 01/30 frontal pressure a/w blurry vision, sees stars, diplopia- moving images, phonophobia, nausea, vertigo, activity intolerance, duration an hour w/ tx, a whole day w/o tx. frequency- a few times a week. Triggers- not eating. Brain fog- forgetfulness. History of concussion/head injury- no residual s/s, Family history of migraine, dizziness. Sister has seizures- dx'd at age 30. Pertinent denials include: Usual neck/back pain . Mood d/o, Sleep d/o Respiratory d/o, CV disease Clotting or hematology d/o, Endocrine or metabolic d/o Previous history of seizure, syncope, or drop attacks GI d/o, Constipation, Leg Cramps. Lifestyle considerations: Sleep routine: Bedtime: 10-11pm, Wake-up time: 6:30am Sleep difficulties: Denies. Has had a sleep study- was normal. Caffeine use: not usually Substance use: Denies, Exercise:?Not as much as she would like. Employment:?Out of work- as she is not driving. 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 Family planning: Possibly PFSH Medical History Sleep apnea Lumbar back pain Dyshidrotic eczema Kidney stones Surgical History H/O lithotripsy Family History Mother Diabetes Father Diabetes HTN (hypertension) Maternal Grandmother CVD (cardiovascular disease) Maternal Grandfather Alzheimer disease Social History Household Members Other:: 3 children, 6 yr, 3 yr 2 month old baby Housing: Apartment Alcohol intake: current Alcohol intake frequency: does not drink Patient Tobacco Use Status: Never used Tobacco e-Cigarette/Vaping Use: Never Used Current occupational status: employed Cognitive needs: No Hearing needs: No Vision needs: Yes Physical Exam Vital Signs: Last Vital Signs Pulse 88 10/26/23 10:08 BP 120/76 10/26/23 10:08 Pulse Ox 99 10/26/23 10:08 Oxygen Delivery Method Room Air 10/26/23 10:08 BMI result Body Mass Index 38.7 Const Orientation/consciousness: patient oriented x3 HEENT Other: No palpable scalp tenderness. Head: Yes normocephalic Resp Effort & Inspection: normal respiratory effort and able to speak in complete sentences Neuro General: patient oriented x3 Cranial nerves: Yes CN's II-XII intact bilaterally Cognition (Neuro): normal cognition Gait exam (Neuro): Normal gait present Motor exam (neuro): 5/5 motor strength present throughout Deep tendon reflexes (DTR's): Right triceps reflex intensity grade: 2+, Left triceps reflex intensity grade: 2+, Rt Biceps (C5, C6): 2+, Left biceps reflex intensity grade: 2+, Right brachioradialis reflex intensity grade: 2+, Left brachioradialis reflex intensity grade: 2+, Right patellar reflex intensity grade: 2+ and Left patellar reflex intensity grade: 2+ Coordination: [id number] test normal, tandem gait normal and Romberg test negative Pupils: Normal pupillary reactivity/response: bilateral Psych Appearance: grossly normal Mental Status: mental status grossly normal Speech and movement: Normal speech and movement present Affect: normal affect Attitude: cooperative Thought process: Normal thought process present Assessment & Plan Assessment & Plan (1) Seizure: Comment: Short loss of consciousness 06/15,[facility] ER visit, nl EEG 07/15, nl brain MR 07/15 Code(s): R56.9 - Unspecified convulsions (2) Vertigo: Code(s): R42 - Dizziness and giddiness (3) Worsening headaches: Code(s): R51.9 - Headache, unspecified Plan Pt reports isolated convulsive syncope in May 2023, which preceded by a severe headache. Postictal symptoms of feeling very drained, low-energy, increased dizziness- off-balanced x's 1.5 week, would be longer than expected in an isolated epileptic seizure. Baseline OK brain w/o and EEG- [facility]. This raises possibility of a severe migraine/headache induced convulsive vaso-vagal syncopal episode, however further work-up is warranted. Patient advised to undergo: Seventy-two hour ambulatory EEG. Brain MRI with and without contrast, with seizure protocol. PT eval and treat for vestibular therapy. Follow-up with cardiology as scheduled. Continue Holter monitor is ordered. For migraine: Start riboflavin 400 mg q.a.m. Start magnesium 400 mg q.h.s. Trial sumatriptan 50-100 mg p.r.n., may repeat in 2 hours, max 200 mg per day. f/u in 2-3 months or sooner prn. Orders: Orders EEG 72 Hours 10/26/23 R56.9 - Unspecified convulsions MR head/brain wo/w con 10/26/23 R56.9 - Unspecified convulsions, R42 - Dizziness and giddiness, R51.9 - Headache, unspecified PT Evaluation and Treatment 10/26/23 R42 - Dizziness and giddiness, R51.9 - Headache, unspecified Medications: New riboflavin (vitamin B2) 400 mg PO DAILY 30 tabs 6RF 30 days sumatriptan succinate 50 - 100 mg orally at onset of headache, may repeat in 2 hrs PRN; max 2 tabs per day or 4 tabs/week (may take with Ibuprofen) 12 tabs 6RF migraine headache 30 days magnesium oxide may hold for loose stools 400 mg PO BEDTIME 30 tabs 6RF 30 days Coding Level of Care Code New Pt Level 4 (13553) Diagnoses Seizure R56.9 Vertigo R42 Worsening headaches R51.9
[2023-10-26 10:08] VITALS: BP 120/76; PULSE 88; O2SAT 99; BMI 38.7
== END 2023-10-26 11:31 | disposition home or self-care (01) ==
PROVIDERS: PCP Internal Medicine; Visit Provider Nurse Practitioner Family
DX: R56.9 Unspecified convulsions (principal); R42 Dizziness and giddiness; R51.9 Headache, unspecified
CPT/HCPCS: 99204

== ENCOUNTER → 2023-10-26 10:04 | Outpatient (BNVA) | payer OTHER, SELFPAY | PROVIDERS: PCP Internal Medicine; Visit Provider Nurse Practitioner Family | DX: R56.9 Unspecified convulsions (principal); R42 Dizziness and giddiness; R51.9 Headache, unspecified | CPT/HCPCS: 99202 ==

== ENCOUNTER 2023-11-02 08:40 | Outpatient (AMB) | payer OTHER, SELFPAY ==
[2023-11-02 08:46] VITALS: BP 90/72; PULSE 85; BMI 38.7
--- NOTE | 2023-11-02 08:46 | A.OFFVIS_ITS ---
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 Allergies kiwi Allergy (Intermediate, Verified 11/02/23 08:48) throat itching, tongue swelling doxycycline [DOXYCYCLINE] Allergy (Unknown, Verified 11/02/23 08:48) HIVES penicillin V Allergy (Unknown, Verified 11/02/23 08:48) hives Penicillins [PENICILLINS] Allergy (Unknown, Verified 11/02/23 08:48) HIVES Sulfa (Sulfonamide Antibiotics) Allergy (Unknown, Verified 11/02/23 08:48) rash sulfamethoxazole [From BACTRIM] Allergy (Unknown, Verified 11/02/23 08:48) HIVES trimethoprim [From BACTRIM] Allergy (Unknown, Verified 11/02/23 08:48) HIVES Medication List - Last Reconciled 11/02/23 by TAHIR Cifuentes magnesium oxide 400 mg PO BEDTIME 30 days meclizine 12.5 mg PO TID PRN riboflavin (vitamin B2) 400 mg PO DAILY 30 days sumatriptan succinate 50 - 100 mg orally at onset of headache, may repeat in 2 hrs PRN; max 2 tabs per day or 4 tabs/week (may take with Ibuprofen) 30 days HPI 1 month f/u HPI Details Angelique is a 32 yr female with PMH of sleep apnea who was seen in [facility] ED following witness seizure event on 06/03/23. Her evaluation showed no acute fin dings. Outpt MRI of brain was normal. She was referred to cardiology by PCP for report of heart palpitations. On last visit a Holter monitor and echocardiogram were ordered. Today she reports no recurrent seizure type activity since her event in May. She tells me on the day of that event she was sitting at a table with her friend playing dominoes. She was experiencing a significant headache. She then remembers putting her head down and the next minute she was lifting her head up and her friend was looking at her in the face. Her friend witnessed body movements suggestive of seizure activity. Angelique was described as being pale. She remembers being weak and diaphoretic. Her ER evaluation revealed no significant findings. Today she reports some lightheadedness at times with position changes. Her blood pressure does run on the low side. She believe she has vertigo and does have meclizine which helps. No chest discomfort at rest or with activity. No shortness of breath, presyncope, syncope, PND, orthopnea or edema. She can feel can feel intermittent heart palpitations like her heart is beating fast. It can last for minutes to hours. She is unsure of anxiety cont ributes. She has gained a lot of weight recently as she has been out of work since May. 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 She has been instructed to not drive for 6 months after her event. She has Neurology testing and follow-up coming. [facility] Medical History Sleep apnea Lumbar back pain Dyshidrotic eczema Kidney stones Surgical History H/O lithotripsy Family History Mother Diabetes Father Diabetes HTN (hypertension) Maternal Grandmother CVD (cardiovascular disease) Maternal Grandfather Alzheimer disease Social History Household Members Other:: 3 children, 6 yr, 3 yr 2 month old baby Housing: Apartment Alcohol intake: current Alcohol intake frequency: does not drink Patient Tobacco Use Status: Never used Tobacco e-Cigarette/Vaping Use: Never Used Current occupational status: employed Cognitive needs: No Hearing needs: No Vision needs: Yes Review of Systems Const Details: lightheaded at times All systems reviewed & are unremarkable except as noted in HPI and below ENT Denies dizziness Card Denies chest pain, Denies chest pain at rest, Denies chest pain with activity, Denies rapid heart rate, Denies pedal edema, Denies edema, Denies leg edema, Denies lightheadedness, Denies palpitations, Denies dyspnea, Denies dyspnea on exertion and Denies orthopnea Resp Denies cough, Denies dyspnea and Denies dyspnea on exertion GI Denies hematochezia and Denies change in stool character Musc Denies abnormal gait, Denies limited range of motion, Denies muscle cramps, Denies muscle weakness, Denies numbness, Denies radiating pain into limb, Denies stiffness and Denies tingling Neuro Denies abnormal gait, Denies dizziness, Denies numbness and Denies tingling Endo Denies palpitations Physical Exam Vital Signs: Last Vital Signs Pulse 85 11/02/23 08:46 BP 90/72 11/02/23 08:46 BMI result Body Mass Index 38.7 Const General: cooperative, healthy appearing, comfortable and no acute distress Orientation/consciousness: patient oriented x3 Neck Neck: Yes normal visual inspection and Yes no JVD Resp Effort & Inspection: normal respiratory effort Auscultation: clear to auscultation bilaterally, no crackles, no rales, no rhonchi and no wheezes Cardio Jugular venous distension: no JVD Rate: regular rate Rhythm: regular rhythm Heart sounds: S1 normal heart sound present, S2 normal heart sound present, no murmurs and no rubs Peripheral pulses: Peripheral pulses 2+ throughout Neuro General: patient oriented x3 Extrem General: Yes normal to inspection and No no pedal edema Psych Appearance: grossly normal Mental Status: mental status grossly normal Speech and movement: Normal speech and movement present Assessment & Plan Assessment & Plan (1) Palpitations: Code(s): R00.2 - Palpitations Plan: Reports of heart palpitations like her heart is beating fast. No sudden start and stop of this sensation. It does not correlate with her lightheadedness. She did have seizure-type activity as above however EEG reported as normal. She is never had syncope in the past. ER note states this could be possible convulsive syncope. EKG done last visit showing normal sinus rhythm with no a cute ST or T-wave abnormalities, normal WA, QRS and QTC intervals. Holter monitor done on 10/22/2022 for 3 days shows sinus rhythm with average heart rate 92, 28% of the time heart rate greater than 100. Echocardiogram done 10/22/2022 was normal study. She has not had any recurrent events. She is following with Neurology and still has testing to undergo. Currently no cardiac findings for her seizure/syncope event. If neurology determined she did not have a seizure then will consider a tilt-table test. Patient will call with this information. Recommended good hydration, get adequate rest, physical activity as tolerated. Cardiology follow-up as needed. (2) Seizure: Comment: Short loss of consciousness 06/15,[facility] ER visit, nl EEG 07/15, nl brain MR 07/15 Code(s): R56.9 - Unspecified convulsions Plan: As above (3) Dizziness: Code(s): R42 - Dizziness and giddiness Plan: Reports of intermittent lightheadedness. Patient has been previously diagnosed by another provider with vertigo. She does take meclizine as needed and tells me that it does help. She has not had any presyncope, syncope, falls. Blood p ressure is on the low side however only mildly orthostatic. Blood pressure sitting 130/76, standing 126/80. Instructed to increase fluids, add some salt, wear compression stockings if needed. (4) Vertigo: Code(s): R42 - Dizziness and giddiness Plan: As above Plan Time spent on chart review, documentation, interview assessment Coding Level of Care Code Est Pt Level 3 (35101) Diagnoses Palpitations R00.2 Seizure R56.9 Dizziness R42 Vertigo R42 Time Spent (min) 24
== END 2023-11-02 09:20 | disposition home or self-care (01) ==
PROVIDERS: PCP Internal Medicine; Visit Provider Nurse Practitioner Family
DX: R00.2 Palpitations (principal); R56.9 Unspecified convulsions; R42 Dizziness and giddiness
CPT/HCPCS: 99213

== ENCOUNTER → 2023-11-02 08:40 | Outpatient (BNVA) | payer OTHER, SELFPAY | PROVIDERS: PCP Internal Medicine; Visit Provider Nurse Practitioner Family | DX: R00.2 Palpitations (principal); R56.9 Unspecified convulsions; R42 Dizziness and giddiness | CPT/HCPCS: 99212 ==

== ENCOUNTER 2023-12-14 08:07 | Outpatient (REF) | payer OTHER, SELFPAY ==
--- NOTE | ~2023-12-14 | MR_ITS ---
EXAMINATION: MR BRAIN WITHOUT AND WITH CONTRAST CLINICAL INFORMATION: Convulsions. Seizure. COMPARISON: None available. TECHNIQUE: MRI of the brain was obtained using routine sequences without and following the administration of 9 mL of Gadavist intravenous contrast. FINDINGS: No focal restricted diffusion is demonstrated to suggest acute or subacute cerebral ischemia. No evidence of acute or chronic hemorrhagic products on heme-sensitive imaging. Normal parenchymal signal characteristics. The ventricles are normal in morphology and size. No abnormal mass effect. No midline shift. The hippocampi are symmetric in size, contour, and signal intensity. The temporal horns appear symmetric. Normal appearance of the pituitary gland. Normal positioning of the cerebellar tonsils. Normal arterial and venous vascular flow voids are present. No abnormal contrast enhancement. Normal, homogeneous marrow signal. Mucus retention cysts within the bilateral maxillary sinuses. Mild mucosal thickening of the paranasal sinuses. No signal abnormalities within the mastoids. MR/MR head/brain wo/w con IMPRESSION: 1. No acute intracranial abnormalities. No abnormal intracranial enhancement. 2. No MRI abnormalities to explain the patient's spells.
[2023-12-14] MEDS: gadobutroL 10 ML VIAL IVPUSH (09:20)
== END 2023-12-14 08:08 | disposition home or self-care (01) ==
LOC: HO.MRI 08:07
PROVIDERS: PCP Internal Medicine; Visit Provider Nurse Practitioner Family
DX: R56.9 Unspecified convulsions (principal); R42 Dizziness and giddiness; R51.9 Headache, unspecified
CPT/HCPCS: 70553; A9585

== ENCOUNTER 2024-06-17 08:02 | Outpatient (AMB) | payer OTHER, SELFPAY ==
--- NOTE | 2024-06-17 10:59 | A.OFFVIS_ITS ---
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 Allergies kiwi Allergy (Intermediate, Verified 06/17/24 10:59) throat itching, tongue swelling doxycycline [DOXYCYCLINE] Allergy (Unknown, Verified 06/17/24 10:59) HIVES penicillin V Allergy (Unknown, Verified 06/17/24 10:59) hives Penicillins [PENICILLINS] Allergy (Unknown, Verified 06/17/24 10:59) HIVES Sulfa (Sulfonamide Antibiotics) Allergy (Unknown, Verified 06/17/24 10:59) rash sulfamethoxazole [From BACTRIM] Allergy (Unknown, Verified 06/17/24 10:59) HIVES trimethoprim [From BACTRIM] Allergy (Unknown, Verified 06/17/24 10:59) HIVES Medication List - Last Reconciled 06/17/24 by Tacos Alfred MD meclizine 12.5 mg PO TID PRN riboflavin (vitamin B2) 400 mg PO DAILY 30 days sumatriptan succinate 50 - 100 mg orally at onset of headache, may repeat in 2 hrs PRN; max 2 tabs per day or 4 tabs/week (may take with Ibuprofen) 30 days HPI HPI 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: Details: Start time: 10.52am, End time: 11.32am ?I spent 35 minutes speaking with the patient on the phone plus an additional 5 minutes reviewing and updating records for a total of 40 minutes HPI Comments Details: Previous weight loss efforts: exercise Wakes up: 6.30am, sleeps: 11pm Breakfast: skips Lunch: 12pm (bagel) Dinner: 6pm (rice, chicken, beans) Snacks: 3-4pm (chips, crackers, peperoni), 9pm (rice pudding, frosted berries) Exercise: none Fluids: Coffee: 1-2/week, tea: none, soda: none, juice: occasionally, ETOH: 1/week (one beer or tequila) [facility] Medical History (Updated 06/17/24 @ 11:21 by Tacos Alfred MD) Migraines Obesity Lumbar back pain Dyshidrotic eczema Kidney stones Surgical History H/O lithotripsy Family History Mother Diabetes Father Diabetes HTN (hypertension) Maternal Grandmother CVD (cardiovascular disease) Maternal Grandfather Alzheimer disease Social History (Updated 06/06/24 @ 10:35 by Lita June [facility]) Household Members Other:: 3 children, 6 yr, 3 yr 2 month old baby Housing: Apartment Alcohol intake: current Alcohol intake frequency: holidays/special occasions only Patient Tobacco Use Status: Never used Tobacco e-Cigarette/Vaping Use: Never Used Current occupational status: employed Cognitive needs: No Hearing needs: No Vision needs: Yes Telehealth Telehealth Telehealth Platform: Telephone Location of provider rendering services: practice address Location of patient: address on file Patient Identification confirmed using: Name, : Yes Telehealth method: voice only Patient verbally consented to treatment: Yes Patient verbally consented to billing insurance company: Yes Patient informed of any privacy concerns related to visit: Yes Minutes spent on Phone/Video with Pt.: 40 Assessment & Plan Assessment & Plan (1) Obesity: Code(s): E66.9 - Obesity, unspecified Category: Medical Qualifiers: Obesity type: due to excess calories Obesity classification: adult class 2 (BMI 35 - 39.9) Serious obesity comorbidity presence: without serious comorbidity Body mass index: BMI 39.0-39.9 Qualified Code(s): E66.812 - Obesity, class 2; E66.09 - Other obesity due to excess calories; Z68.39 - Body mass index [BMI] 39.0-39.9, adult Plan: 1.? Plan for lap sleeve gastrectomy. If diaphragmatic or ventral hernias are present at time of surgery, these will be repaired laparoscopically as well. 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 I emphasized the importance of close follow-up, adherence to instructions and good communication. 2. You will receive a link of our software sol to generate an individualized nutritional and exercise plan specific for you. Please send me a screenshot of the plans you will generate Meal to include lean meat (beef, fish, pork, turkey, chicken), or greenlandic yogurt, or egg whites, or beans with a salad with olive oil and fruits (berries, pears, apples, kiwi). Avoid salt, breads, potatoes, rice, pasta, desserts. ?3. If you choose shakes, each shake would be drunk slowly, like coffee in a period of 2 hours. ?4. If you choose bars, cut each bar in 4 pieces and eat each piece in 30min ?to make each bar last 2 hours. ?5. I emphasized the importance of measuring accurately the food portion and measure it when serving the food in plate ?6. The meal portions include a specific number of forks of meat and salad. You always eat the meat portion but you can replace up to half of salad/vegetables portion with rice, potatoes or pasta, or a fruit ?if you like. The less you do it the better weight loss will be. ?7. One full-size fork is what it can be scooped on the fork without falling aside and not what can be bit with the fork. Use regular forks like those you find in a typical restaurant. ?8.? Please send me weight measurements as soon as possible and then once a week. Always include your diet and exercise plan. 9. The best choice would be to purchase a stationary bike, elliptical or treadmill at home that can track calories. Let me know if you do so I can give you an exercise plan. ?10.?It is important of avoiding and for at least 18 months postoperatively and has been discussed at the infosession. ?11. Goal is to lose at least 1.5-2lbs per week ?12. Goal to lose 10% of your weight before surgery, which is about 20lbs. Ultimate weight goal: 180lbs before surgery 13. Please follow the diet plan exactly without any change. If you don't like something about the plan or you feel hungry you need to communicate with me so I can help you revise the plan. You should not change the plan yourself. 14. To be scheduled for EGD to assess the stomach's anatomy. The possibility of biopsies was discussed. Patient needs to avoid use of NSAIDs and aspirin for 1 week prior to EGD. You must be on liquids only the day before your endoscopy. Risks of perforation and bleeding was discussed with the patient. This will be an outpatient procedure with IV sedation. Orders: Orders Insulin Today E66.9 - Obesity, unspecified, Z68.39 - Body mass index [BMI] 39.0-39.9, adult Complete Blood Count Auto Diff Today E66.9 - Obesity, unspecified, Z68.39 - Body mass index [BMI] 39.0-39.9, adult Comprehensive Met. Panel Today E66.9 - Obesity, unspecified, Z68.39 - Body mass index [BMI] 39.0-39.9, adult Vitamin B12 and Folate Today E66.9 - Obesity, unspecified, Z68.39 - Body mass index [BMI] 39.0-39.9, adult C Reactive Protein Today E66.9 - Obesity, unspecified, Z68.39 - Body mass index [BMI] 39.0-39.9, adult Vitamin A Today E66.9 - Obesity, unspecified, Z68.39 - Body mass index [BMI] 39.0-39.9, adult TSH reflex Free T4 Today E66.9 - Obesity, unspecified, Z68.39 - Body mass index [BMI] 39.0-39.9, adult Ferritin Today E66.9 - Obesity, unspecified, Z68.39 - Body mass index [BMI] 39.0-39.9, adult Vitamin D 25-OH Total Today E66.9 - Obesity, unspecified, Z68.39 - Body mass index [BMI] 39.0-39.9, adult ECG 12 lead EKG Today E66.9 - Obesity, unspecified, Z68.39 - Body mass index [BMI] 39.0-39.9, adult Hemoglobin A1c Today E66.9 - Obesity, unspecified, Z68.39 - Body mass index [BMI] 39.0-39.9, adult H Pylori Breath Test Today E66.9 - Obesity, unspecified, Z68.39 - Body mass index [BMI] 39.0-39.9, adult Lipid Panel Today E66.9 - Obesity, unspecified, Z68.39 - Body mass index [BMI] 39.0-39.9, adult IRON PROFILE Today E66.9 - Obesity, unspecified, Z68.39 - Body mass index [BMI] 39.0-39.9, adult Zinc Today E66.9 - Obesity, unspecified, Z68.39 - Body mass index [BMI] 39.0- 39.9, adult Vitamin B1 Today E66.9 - Obesity, unspecified, Z68.39 - Body mass index [BMI] 39.0-39.9, adult US abdomen comp w elastography Today E66.9 - Obesity, unspecified, Z68.39 - Body mass index [BMI] 39.0-39.9, adult XR chest 2V Today E66.9 - Obesity, unspecified, Z68.39 - Body mass index [BMI] 39.0-39.9, adult FL upper GI w air Today E66.9 - Obesity, unspecified, Z68.39 - Body mass index [BMI] 39.0-39.9, adult Referrals Behavioral Health Referral E66.9 - Obesity, unspecified, Z68.39 - Body mass index [BMI] 39.0-39.9, adult Nutrition/Dietitian Referral E66.9 - Obesity, unspecified, Z68.39 - Body mass index [BMI] 39.0-39.9, adult
[2024-06-17 11:07] VITALS: BMI 38.9
== END 2024-06-17 11:33 | disposition home or self-care (01) ==
LOC: HO.HBS 08:02
PROVIDERS: PCP Internal Medicine; Visit Provider Surgery
DX: E66.812 Obesity, class 2 (principal); E66.09 Other obesity due to excess calories; Z68.39 Body mass index [BMI] 39.0-39.9, adult
CPT/HCPCS: 99203

== ENCOUNTER 2024-06-25 11:18 | Outpatient (REF) | payer OTHER, SELFPAY ==
--- NOTE | 2024-06-25 11:22 | ECG_ITS ---
Test Reason : e66.9 Blood Pressure : / mmHG Vent. Rate : 079 BPM Atrial Rate : 079 BPM P-R Int : 154 ms QRS Dur : 090 ms QT Int : 412 ms P-R-T Axes : 061 060 049 degrees QTc Int : 472 ms Normal sinus rhythm Normal ECG No previous ECGs available Referred By: Tacos Alfred Electronically Signed By:Micheal Bernard
[2024-06-25 11:38] LABS: MANUAL DIFF FLAG NO
[2024-06-25 11:48] LABS: Eosinophils Absolute Auto 0.1 X10*3/uL (0.0-0.4); Eosinophils Percent Auto 1.7 % (0-4); Hematocrit 39.7 % (37.0-47.0); Hemoglobin 13.3 g/dl (12.0-16.0); Imm Gran Abs Auto 0.01 X10*3/uL (0.00-0.03); Imm Gran Pct Auto 0.2 % (0.0-0.4); Lymphocytes Absolute Auto 1.4 X10*3/uL (1.2-4.9); Lymphocytes Percent Auto 35.2 % (20-40); Mean Corpuscular HGB Conc 33.5 g/dl (31.0-35.0); Mean Corpuscular Hemoglobin 28.5 pg (27.0-33.0); Mean Corpuscular Volume 85.2 fL (80.0-98.0); Mean Platelet Volume 9.1 fL (9.4-12.3); Monocytes Absolute Auto 0.2 X10*3/uL (0.1-1.2); Monocytes Percent Auto 5.5 % (2-11); Neutrophils Absolute Auto 2.3 x10*3/uL (2.0-8.3); Neutrophils Percent Auto 56.4 % (45-73); Platelet Count 265 X10*3/uL (160-400); Red Blood Count 4.66 X10*6/uL (4.20-5.50); Red Cell Distribution Width 12.8 % (11.0-16.0)
[2024-06-25 13:23] LABS: Alanine Aminotransferase 45 U/L (0-31); Albumin Level 4.3 g/dL (3.5-5.0); Alkaline Phosphatase 92 U/L (39-117); Anion Gap 8 (12-20); Aspartate Amino Transferase 29 U/L (5-31); Bilirubin Total 0.4 mg/dL (0.0-1.0); Blood Urea Nitrogen 12 mg/dL (9-16); C Reactive Protein 0.22 mg/dL (< or = 0.50); Calcium 9.3 mg/dL (8.4-10.2); Carbon Dioxide 28 mmol/L (22-29); Chloride 104 mmol/L (96-108); Cholesterol 292 mg/dL (<200); Estimated Glomerular Filt Rate > 60; Glucose Random 94 mg/dL (60-115); HDL Cholesterol 66 mg/dL (>40); Iron 73 mcg/dL (30-160); LDL Cholesterol Calculated 203 mg/dL (<100); Percent Iron Saturation 21 % (15-50); Potassium 3.7 mmol/L (3.3-5.1); Sodium 136 mmol/L (135-145); Total Iron Binding Capacity 356 mcg/dL (228-428); Total Protein 7.4 g/dL (6.5-8.0); Triglycerides 117 mg/dL (<150); Unsaturated Iron Binding 283 ug/dL
[2024-06-25 13:27] LABS: Ferritin 14 ng/mL (10-122); Vitamin D 25-OH Total 18.2 ng/mL (>30)
[2024-06-25 13:36] LABS: Folate 7.2 ng/mL (> or = 4.0); Vitamin B12 645 pg/mL (200-900)
[2024-06-25 14:24] LABS: Insulin 16 uU/mL (2-29)
[2024-06-25 14:43] LABS: Estimated Average Glucose 97 mg/dL; Hemoglobin A1C 110.9162 umol/L; Total Hemoglobin (HGBA1C) 3514.6239 umol/L
[2024-06-28 22:38] LABS: Vitamin A 56 mcg/dL (38-98)
[2024-06-29 01:34] LABS: Zinc 82 mcg/dL (60-130)
[2024-06-29 08:22] LABS: Vitamin B1 7 nmol/L (8-30)
== END 2024-06-25 11:19 | disposition home or self-care (01) ==
LOC: HO.LAB 11:18
PROVIDERS: PCP Internal Medicine; Visit Provider Surgery
DX: E66.9 Obesity, unspecified (principal); Z68.39 Body mass index [BMI] 39.0-39.9, adult
CPT/HCPCS: 36415; 71046; 80053; 80061; 82306; 82607; 82728; 82746; 83036; 83525; 83540; 84425; 84443; 84590; 84630; 85025; 86140; 93005

== ENCOUNTER → 2024-06-25 11:22 | Outpatient (BNV) | payer OTHER, SELFPAY | PROVIDERS: PCP Internal Medicine; Visit Provider Internal Medicine Cardiovascular Disease | DX: E66.9 Obesity, unspecified (principal) | CPT/HCPCS: 93010 ==

== ENCOUNTER 2024-06-26 08:21 | Outpatient (AMB) | payer OTHER, SELFPAY ==
[2024-06-26 08:32] VITALS: BP 100/62; PULSE 89; O2SAT 98; BMI 40.4
--- NOTE | 2024-06-26 08:32 | A.OFFVIS_ITS ---
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: No Accompanied by: Son Allergies kiwi Allergy (Intermediate, Verified 06/26/24 08:34) throat itching, tongue swelling doxycycline [DOXYCYCLINE] Allergy (Unknown, Verified 06/26/24 08:34) HIVES penicillin V Allergy (Unknown, Verified 06/26/24 08:34) hives Penicillins [PENICILLINS] Allergy (Unknown, Verified 06/26/24 08:34) HIVES Sulfa (Sulfonamide Antibiotics) Allergy (Unknown, Verified 06/26/24 08:34) rash sulfamethoxazole [From BACTRIM] Allergy (Unknown, Verified 06/26/24 08:34) HIVES trimethoprim [From BACTRIM] Allergy (Unknown, Verified 06/26/24 08:34) HIVES HPI Comments Details: Right-handed 32-yr-old female presents for f/u episode of convulsive syncope. EEG 72 hr ambulatory- normal. Brain MRI, November 2023, unremarkable, there a mild maxillary retention cysts. Pt has not had any interval seizure like activity. Saw cardiology, work-up was unremarkable. She is working w/ weight management. Her BP has been running lower, today 100/62. She is trying to drink more water. She has never had a tilt table test. Has not had any interval syncopal or convulsions since the last visit. She can have nasal congestion- does not treat this. Pt reports she has headaches and lightheadedness about once a week, which can be triggered by motion and heat. Riboflavin and Sumatriptan is helpful and tolerated well. Initial HPI form 10/26/23: Pt reports that in May 2023, she was sitting down playing dominos, felt a very bad frontal headache coming on, had to stop talking, put her head down, and closed her eyes. Her friend told her she became pale, she clenched her fists and started shaking and unresponsive x's 1 minute. No intraictal tongue biting or urinary/bowl incontinence. She did not fall over. Her friend checked her BP w/ a wrist cuff- SBP > 200. After she came to, she felt confusion, clammy, she tried to stand up but her gait was off, she was nauseous, and about 10 minutes later she vomited. She went to [facility] ER, Head CT w/o, and Head/Neck CTA- NL. After the episode, she felt very drained, low-energy, increased dizziness- off- balanced x's 1.5 weeks. And this subsided gradually. Follow-up EEG and brain MRI w/o- normal. She is seeing cardiology- Echocardiogram- normal. Currently wearing a holter monitor. Pt reports normal gestational and early development. PMH is significant for: Palpitations Pt also endorses:? Vertigo a/w off-balance, diplopia- if she moves to quickly, sometimes can trigger headache. Triggers- not eating. Has never had vestibular tx. Motion sickness- depending on the situation. Lightheadedness, can have w/wo orthostatic changes. Headaches- 7/10 frontal pressure a/w blurry vision, sees stars, diplopia- moving images, phonophobia, nausea, vertigo, activity intolerance, duration an hour w/ tx, a whole day w/o tx. frequency- a few times a week. Triggers- not eating. Brain fog- forgetfulness. History of concussion/head injury- no residual s/s, Family history of migraine, dizziness. Sister has seizures- dx'd at age 30. Pertinent denials include: Usual neck/back pain . Mood d/o, Sleep d/o Respiratory d/o, CV disease Clotting or hematology d/o, Endocrine or metabolic d/o Previous history of seizure, syncope, or drop attacks GI d/o, Constipation, Leg Cramps. Lifestyle considerations: Sleep routine: Bedtime: 10-11pm, Wake-up time: 6:30am Sleep difficulties: Denies. Has had a sleep study- was normal. Caffeine use: not usually Substance use: Denies, Exercise:?Not as much as she would like. Employment:?Out of work- as she is not driving. 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 Family planning: Possibly PFSH Medical History (Updated 06/26/24 @ 12:45 by GOSIA Thomas) Migraines Obesity Lumbar back pain Dyshidrotic eczema Kidney stones Surgical History H/O lithotripsy Family History Mother Diabetes Father Diabetes HTN (hypertension) Maternal Grandmother CVD (cardiovascular disease) Maternal Grandfather Alzheimer disease Social History Household Members Other:: 3 children, 6 yr, 3 yr 2 month old baby Housing: Apartment Alcohol intake: current Alcohol intake frequency: holidays/special occasions only Patient Tobacco Use Status: Never used Tobacco e-Cigarette/Vaping Use: Never Used Current occupational status: employed Cognitive needs: No Hearing needs: No Vision needs: Yes Physical Exam Vital Signs: Last Vital Signs Pulse 89 06/26/24 08:32 BP 100/62 06/26/24 08:32 Pulse Ox 98 06/26/24 08:32 Oxygen Delivery Method Room Air 06/26/24 08:32 BMI result Body Mass Index 40.4 Const Orientation/consciousness: patient oriented x3 HEENT Other: No palpable scalp tenderness. Head: Yes normocephalic Resp Effort & Inspection: normal respiratory effort and able to speak in complete sentences Neuro General: patient oriented x3 Cranial nerves: Yes CN's II-XII intact bilaterally Cognition (Neuro): normal cognition Gait exam (Neuro): Normal gait present Motor exam (neuro): 5/5 motor strength present throughout Deep tendon reflexes (DTR's): Right triceps reflex intensity grade: 2+, Left triceps reflex intensity grade: 2+, Rt Biceps (C5, C6): 2+, Left biceps reflex intensity grade: 2+, Right brachioradialis reflex intensity grade: 2+, Left brachioradialis reflex intensity grade: 2+, Right patellar reflex intensity grade: 2+ and Left patellar reflex intensity grade: 2+ Coordination: [id number] test normal, tandem gait normal and Romberg test negative Pupils: Normal pupillary reactivity/response: bilateral Psych Appearance: grossly normal Mental Status: mental status grossly normal Speech and movement: Normal speech and movement present Affect: normal affect Attitude: cooperative Thought process: Normal thought process present Assessment & Plan Assessment & Plan (1) Convulsive syncope: Code(s): R55 - Syncope and collapse Category: Medical (2) Migraine with aura: Code(s): G43.109 - Migraine with aura, not intractable, without status migrainosus Category: Medical Plan Pt reports isolated convulsive syncope in May 2023, which preceded by a severe headache. Postictal symptoms of feeling very drained, low-energy, increased dizziness- off-balanced x's 1.5 week, would be longer than expected in an isolated epileptic seizure. Baseline MRI brain w/o and EEG- WL. Etiology likely due to a severe migraine/headache induced convulsive vaso-vagal syncopal episode. Reviewed Seventy-two hour ambulatory EEG- no evidence of epileptic activity Reviewed Brain MRI with and without contrast- unremarkable. There was note of maxillary retention cysts. And patient does endorse nasal congestion. She may try OTC antihistamine, such as loratadine or cetirizine, and saline nasal sprays Reviewed cardiology notes, workup has been remarkable Patient advised to undergo follow-up tilt-table test In the meantime, continue to take increase fluids. Advised to add 1-2 servings of electrolyte replacement beverage per day. As patient has not had any interval syncopal episodes, and workup has been unremarkable, patient has been cleared to return to work and to drive. For migraine with aura: Continue riboflavin 400 mg q.a.m. May hold magnesium 400 mg q.h.s, as patient never started Continue sumatriptan 50-100 mg p.r.n., may repeat in 2 hours, max 200 mg per day. Pt to follow-up in 6 months or sooner prn. Orders: Orders ECG Tilt Table Test Today R55 - Syncope and collapse Coding Level of Care Code Est Pt Level 4 (01707) Diagnoses Convulsive syncope R55 Migraine with aura G43.109
== END 2024-06-26 09:18 | disposition home or self-care (01) ==
PROVIDERS: PCP Internal Medicine; Visit Provider Nurse Practitioner Family
DX: R55 Syncope and collapse (principal); G43.109 Migraine with aura, not intractable, without status migrainosus
CPT/HCPCS: 99214

== ENCOUNTER → 2024-06-26 08:21 | Outpatient (BNVA) | payer OTHER, SELFPAY | PROVIDERS: PCP Internal Medicine; Visit Provider Nurse Practitioner Family | DX: G43.109 Migraine with aura, not intractable, without status migrainosus (principal); R55 Syncope and collapse | CPT/HCPCS: 99212 ==

== ENCOUNTER 2024-07-05 09:40 | Outpatient (REF) | payer OTHER, SELFPAY | END 2024-07-05 09:41 | disposition home or self-care (01) | LOC: HO.US 09:40 | PROVIDERS: PCP Internal Medicine; Visit Provider Surgery | DX: E66.9 Obesity, unspecified (principal); Z68.39 Body mass index [BMI] 39.0-39.9, adult | CPT/HCPCS: 76700; 76981 ==

== ENCOUNTER → 2024-07-05 09:41 | Outpatient (BNV) | payer OTHER, SELFPAY | PROVIDERS: PCP Internal Medicine; Visit Provider Radiology Diagnostic Radiology | DX: K76.0 Fatty (change of) liver, not elsewhere classified (principal) | CPT/HCPCS: 76700 ==

== ENCOUNTER 2024-09-04 08:53 | Outpatient (AMB) | payer OTHER, SELFPAY ==
--- NOTE | 2024-09-04 09:15 | A.OFFPC_ITS ---
Vital Signs 09/04/24 09:16 Height 5 ft Weight 209 lb BMI 40.8 BP 110/70 Blood Pressure Location Lt brachial Position Sitting Respiration 18 Pulse 84 Pulse Source Pulse Oximeter Temp 98.4 F Temp Source Oral Pulse Oximetry (%) 99 Oxygen Delivery Method Room Air Intake Visit Reasons: Discuss weight loss Intake Note: Pt is here today for a follow up visit. Pt would like to discuss weight loss options. Allergies kiwi Allergy (Intermediate, Verified 09/04/24 09:18) throat itching, tongue swelling doxycycline [DOXYCYCLINE] Allergy (Unknown, Verified 09/04/24 09:18) HIVES penicillin V Allergy (Unknown, Verified 09/04/24 09:18) hives Penicillins [PENICILLINS] Allergy (Unknown, Verified 09/04/24 09:18) HIVES Sulfa (Sulfonamide Antibiotics) Allergy (Unknown, Verified 09/04/24 09:18) rash sulfamethoxazole [From BACTRIM] Allergy (Unknown, Verified 09/04/24 09:18) HIVES trimethoprim [From BACTRIM] Allergy (Unknown, Verified 09/04/24 09:18) HIVES Medication List - Last Reconciled 09/04/24 by Luci Ny MD cholecalciferol (vitamin D3) 125 mcg PO DAILY meclizine 12.5 mg PO TID PRN riboflavin (vitamin B2) 400 mg PO DAILY 30 days sumatriptan succinate 50 - 100 mg orally at onset of headache, may repeat in 2 hrs PRN; max 2 tabs per day or 4 tabs/week (may take with Ibuprofen) 30 days thiamine HCl (vitamin B1) 100 mg PO DAILY Zepbound (tirzepatide (weight loss)) 2.5 mg (0.5 mL) subcut QWEEK NS Tobacco use date assessed: 09/04/24 Dental Screening Dental Screen Date: 09/04/24 Did you have a dental visit in the last 12 months?: Yes Did you have a dental problem in the last 6 months where you did not have access to dental care?: No Was dental information given to patient?: Patient has dentist HPI Discuss weight loss HPI Details Patient presents for a follow-up. 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 Patient is interested in trying GLP 1 agonist to facilitate weight loss and prevent complications of obesity including diabetes hypertension hyperlipidemia coronary artery disease. [facility] Medical History (Updated 09/04/24 @ 14:48 by Luci Ny MD) Seizure Migraines Obesity Lumbar back pain Dyshidrotic eczema Kidney stones Surgical History H/O lithotripsy Family History Mother Diabetes Father Diabetes HTN (hypertension) Maternal Grandmother CVD (cardiovascular disease) Maternal Grandfather Alzheimer disease Social History Household Members Other:: 3 children, 6 yr, 3 yr 2 month old baby Housing: Apartment Alcohol intake: current Alcohol intake frequency: holidays/special occasions only Patient Tobacco Use Status: Never used Tobacco e-Cigarette/Vaping Use: Never Used service: No Current occupational status: employed Cognitive needs: No Hearing needs: No Vision needs: Yes Questionnaire PHQ-9 Over the last 2 weeks, how often have you been bothered by any of the following problems? 1. Little interest or pleasure in doing things: not at all 2. Feeling down, depressed, or hopeless: not at all 3. Trouble falling or staying asleep, or sleeping too much: not at all 4. Feeling tired or having little energy: several days 5. Poor appetite or overeating: several days 6. Feeling bad about yourself - or that you are a failure or have let yourself or your family down: not at all 7. Trouble concentrating on things, such as reading the newspaper or watching television: not at all 8. Moving or speaking so slowly that other people could have noticed. Or the opposite - being so fidgety or restless that you have been moving around a lot more than usual: not at all 9. Thoughts that you would be better off or of hurting yourself in some way: not at all Total score: 2 Depression Screening Interpretation: Negative Depression Screening Done: Yes 66801 - PHQ-9 Billing: Yes Source: Developed by Drs. Benjamin Alvarez, Nanci Child, Oscar Dooley and colleagues, with an educational elizabeth from [employer]. Thrive Questionnaire Date Thrive assessed: 09/04/24 I am a: Patient What is your living situation today?: I have a steady place to live Within the past 12 months, did the food you bought not last and you didn't have the money to get more?: Never true Within the past 12 months, did you worry whether your food would run out before you got money to buy more?: Never true Do you have trouble paying for medicines?: No Do you have trouble getting transportation to medical appointments?: No Do you have trouble paying your heating and electricity bill?: Yes Do you have trouble taking care of your child, family member or friend?: No Do you have trouble with day-to-day activities such as bathing, preparing meals, shopping, managing finances, etc.?: No Are you currently unemployed and looking for a job?: No Are you interested in more education?: No Please select the resources that you would like help with: Utilities Currently or been in a relationship where the following occur: No concerns reported THRIVE Score: 1 AUDIT C Alcohol Use Questionnaire (AUDIT-C) 1. How often do you have a drink containing alcohol?: 2-4 times a month 2. How many drinks containing alcohol do you have on a typical day when you are drinking?: 1 or 2 3. How often do you have six or more drinks on one occasion?: Never Total Score: 2 DONTRELL-7 AMB Questionnaire DONTRELL-7 Date DONTRELL - 7 assessed: 09/04/24 Feeling nervous, anxious, or on edge: 0 = Not at all Not being able to stop or control worryin = Not at all Worrying too much about different things: 0 = Not at all Trouble relaxin = Not at all Being so restless that it is hard to sit still: 0 = Not at all Becoming easily annoyed or irritable: 0 = Not at all Feeling afraid as if something awful might happen: 0 = Not at all Total DONTRELL-7 score (0-4 normal; 5-9 mild; 10-14 moderate; 15-21 severe): 0 Source: Developed by Drs. Benjamin Alvarez, Nanci Child, Oscar Dooley and colleagues, with an educational elizabeth from [employer]. DONTRELL-7 Assessment Billing DONTRELL-7 Assessment Tool: DONTRELL-7 Assessment 59100 Review of Systems Const All systems reviewed & are unremarkable except as noted in HPI and below ENT Reports no additional complaints Card Reports no additional complaints Resp Reports no additional complaints GI Reports no additional complaints Reports no additional complaints Musc Reports no additional complaints Physical exam (Primary Care) Vital Signs: Last Vital Signs Temp 98.4 F 09/04/24 09:16 Pulse 84 09/04/24 09:16 Resp 18 09/04/24 09:16 BP 110/70 09/04/24 09:16 Pulse Ox 99 09/04/24 09:16 Oxygen Delivery Method Room Air 09/04/24 09:16 BMI result Body Mass Index 40.8 Tobacco/Smoking Status: Tobacco use Status Tobacco use date assessed 09/04/24 09/04/24 09:21 Patient Tobacco Use Status Never used Tobacco 09/04/24 09:21 e-Cigarette/Vaping Use Never Used 09/04/24 09:21 PHQ-9: PHQ-9 Score PHQ-9: Total score 2 09/04/24 09:52 Depression Screening Interpretation: Negative Thrive Assessment: Date of Thrive Assessment Date Thrive assessed 09/04/24 09/04/24 09:21 Currently or been in a relationship where the following occur: No concerns reported Const General: no acute distress HENMT Face and sinus: Yes normal facial exam Neck Neck: Yes supple Resp Effort & Inspection: normal respiratory effort Auscultation: clear to auscultation bilaterally Cardio Rhythm: regular rhythm Heart sounds: S1 normal heart sound present and S2 normal heart sound present GI Inspection: Yes normal to inspection Palpation (GI): Soft to palpation Percussion: Yes normal to percussion Auscultation: normal bowel sounds Coding Level of Care Code Est Pt Level 3 (75230) Diagnoses BMI 39.0-39.9,adult Z68.39 Additional Codes DONTRELL-7 Assessment Billing - DONTRELL-7 Assessment Tool: DONTRELL-7 Assessment 69594 ([id number]) PHQ-9 - 41359 - PHQ-9 Billing: Yes ([id number]) Assessment & Plan Assessment & Plan (1) BMI 39.0-39.9,adult: Code(s): Z68.39 - Body mass index [BMI] 39.0-39.9, adult Category: Medical Plan: Zepbound 2.5 mg weekly will be started for the 1st month and the dose will be increased depending on weight loss and tolerance of the medication. Patient will follow-up in 3 months Medications: New Zepbound (tirzepatide (weight loss)) for 4 weeks 2.5 mg (0.5 mL) subcut QWEEK 2 mL 0RF NS
[2024-09-04 09:16] VITALS: BP 110/70; PULSE 84; RESP 18; TEMP 36.9; O2SAT 99; BMI 40.8
--- OUTSIDE RECORDS SUMMARY | 2024-09-04 09:46 | XMS_ITS | Clinical Summary ---
Author Organization [facility] Address [address] [place] [address] Care Team Providers Care Director Chemistry Name Role Phone Unavailable Primary Care Provider Unavailabl e Source Comments PLEASE NOTE, if this patient is a minor, it may be UNLAWFUL to discuss sensitive information that is contained in these records (such as FAMILY PLANNING, MENTAL HEALTH or SUBSTANCE ABUSE) with the minor patient's parent or other person without the patient's specific authorization.[facility] Immunizations Name Administration Dates Next Due Moderna COVID-19 Vaccine, re d cap blue label, 12+ Primary Series 04/08/2021,03/11/2021 Social History Tobacco Use Types Packs/Day Years Used Date Smoking Tobacco: Never Assessed Social Connections Answer Date Recorded Connectedness 0 04/15/2024 Financial Resource Strain Answer Date R ecorded Financial Resource Strain 0 2023 Stress Answer Date Recorded Stress 0 04/15/2024 Physical Activity Answer Date Recorded Physical Activity 0 04/15/2024 Food Insecurity Answer Date Recorded Food 0 04/18/2024 Transportation Needs Answer Date Record ed Transportation 0 04/15/2024 Housing Stability Answer Date Recorded Housing 0 04/15/2024 Safety and Environment Answer Date Simon rded Safety 0 04/15/2024 Utilities Answer Date Recorded Utilities 0 04/15/2024 Employment Answer Date Recorded Stress 0 04/15/2024 Comments Unknown Sex and Gender Information Value Date Recorded Sex Assigned at Not on file Legal Sex Female 7:30 AM PDT Gender Identity Not on file Sexual Orientation Not on file Plan of Treatment Health Maintenance Due Date Last Done Comments Diabetes Screening 1988 HPV Screening 1988 Hepatitis C Screening 1988 Pap + HPV 1988 Tobacco Screening 1988 HIV Screening 12/06/2003 Relationship Safety Screening/Counseling 12/06/2003 Annual Preventive Care Visit 2006 Hypertension Screening (#1) 2006 Imm-Hepatitis B (1 of 3 - 19 + 3-dose series) 12/06/2007 Cervical Cancer Screening 2009 Pap Smear 2009 Alcohol and Drug Screen 07/24/2023 Depression Annual Screen 07/24/2023 [id number] (3 2023- season) 2024 021, 03/11/2021 Imm-Influenza (#1) 2024 Imm-DTaP/Tdap/Td (2 - Td or Tdap) 01/04/2028 018 Cervical Ablation/Cold-Knife Conization Discontinued Cervical Cryotherapy Discontinued Colposcopy Discontinued Endometrial Biopsy Discontinued Excision/Leep Discontinued HPV Genotyping Discontinued Vaginal Pap Discontinued Vulvoscopy Discontinued Insurance [employer] PL[employer] Member Subscriber Plan / Payer (Ef fective 2021-Present) Name:Angelique Diaz Relation to Subscriber:Self Name:Angelique Diaz Payer ID:[id number] Group ID:Not on file Type:Medicaid Address: [facility] [address] [place] [address]
== END 2024-09-04 14:49 | disposition home or self-care (01) ==
PROVIDERS: PCP Internal Medicine; Visit Provider Internal Medicine
DX: Z68.39 Body mass index [BMI] 39.0-39.9, adult (principal)

== ENCOUNTER → 2024-09-04 08:53 | Outpatient (BNVA) | payer OTHER, SELFPAY | PROVIDERS: PCP Internal Medicine; Visit Provider Internal Medicine | DX: E66.9 Obesity, unspecified (principal); Z68.39 Body mass index [BMI] 39.0-39.9, adult; Z71.3 Dietary counseling and surveillance | CPT/HCPCS: 96127; 99212 ==

== ENCOUNTER → 2024-09-23 09:03 | Outpatient (BNVA) | payer OTHER, SELFPAY | PROVIDERS: PCP Internal Medicine; Visit Provider Internal Medicine ==

== ENCOUNTER 2024-12-17 09:04 | Outpatient (AMB) | payer OTHER, SELFPAY ==
--- NOTE | 2024-12-17 09:18 | MHC.PC.OV ---
Vital Signs 12/17/24 09:19 Height 5 ft Weight 188 lb BMI 36.7 BP 104/66 Blood Pressure Location Lt brachial Position Sitting Respiration 18 Pulse 86 Pulse Source Pulse Oximeter Temp 98.3 F Temp Source Oral Pulse Oximetry (%) 98 Oxygen Delivery Method Room Air Intake Visit Reasons: 3 months follow up on weight med Intake Note: Pt is here today for 3 months follow up visit on on weight medication. Allergies kiwi Allergy (Intermediate, Verified 12/17/24 09:28) throat itching, tongue swelling phentermine Allergy (Intermediate, Verified 12/17/24 09:28) Agitation and tachycardia doxycycline [DOXYCYCLINE] Allergy (Unknown, Verified 12/17/24 09:28) HIVES penicillin V Allergy (Unknown, Verified 12/17/24 09:28) hives Penicillins [PENICILLINS] Allergy (Unknown, Verified 12/17/24 09:28) HIVES Sulfa (Sulfonamide Antibiotics) Allergy (Unknown, Verified 12/17/24 09:28) rash sulfamethoxazole [From BACTRIM] Allergy (Unknown, Verified 12/17/24 09:28) HIVES trimethoprim [From BACTRIM] Allergy (Unknown, Verified 12/17/24 09:28) HIVES Medication List - Last Reconciled 12/17/24 by Luci Ny MD cholecalciferol (vitamin D3) 125 mcg PO DAILY meclizine 12.5 mg PO TID PRN riboflavin (vitamin B2) 400 mg PO DAILY 30 days sumatriptan succinate 50 - 100 mg orally at onset of headache, may repeat in 2 hrs PRN; max 2 tabs per day or 4 tabs/week (may take with Ibuprofen) 30 days thiamine HCl (vitamin B1) 100 mg PO DAILY Zepbound (tirzepatide (weight loss)) 7.5 mg (0.5 mL) subcut QWEEK NS Tobacco use date assessed: 12/17/24 Dental Screening Dental Screen Date: 09/04/24 HPI 3 months follow up on weight med HPI Details Patient presents for the follow-up of weight loss program. She has been taking Zepbound up to 7.5 mg for the last month and following lower caloric diet increasing physical activity. Patient lost 20 lb since last visit. She has been tolerating medication well [facility] Medical History (Updated 12/17/24 @ 10:14 by Luci Ny MD) Seizure Migraines Obesity Lumbar back pain Dyshidrotic eczema Kidney stones Surgical History H/O lithotripsy Family History Mother Diabetes Father Diabetes HTN (hypertension) Maternal Grandmother CVD (cardiovascular disease) Maternal Grandfather Alzheimer disease Social History Household Members Other:: 3 children, 6 yr, 3 yr 2 month old baby Housing: Apartment Alcohol intake: current Alcohol intake frequency: holidays/special occasions only Patient Tobacco Use Status: Never used Tobacco e-Cigarette/Vaping Use: Never Used service: No Current occupational status: employed Cognitive needs: No Hearing needs: No Vision needs: Yes Questionnaire Thrive Questionnaire Date Thrive assessed: 09/04/24 I am a: Patient What is your living situation today?: I have a steady place to live Within the past 12 months, did the food you bought not last and you didn't have the money to get more?: Never true Within the past 12 months, did you worry whether your food would run out before you got money to buy more?: Never true Do you have trouble paying for medicines?: No Do you have trouble getting transportation to medical appointments?: No Do you have trouble paying your heating and electricity bill?: Yes Do you have trouble taking care of your child, family member or friend?: No Do you have trouble with day-to-day activities such as bathing, preparing meals, shopping, managing finances, etc.?: No Are you currently unemployed and looking for a job?: No Are you interested in more education?: No Please select the resources that you would like help with: Utilities Currently or been in a relationship where the following occur: No concerns reported THRIVE Score: 1 DONTRELL-7 AMB Questionnaire DONTRELL-7 Date DONTRELL - 7 assessed: 09/04/24 Source: Developed by Drs. Benjamin Alvarez, Nanci Child, Oscar Dooley and colleagues, with an educational elizabeth from [employer] Review of Systems Const All systems reviewed & are unremarkable except as noted in HPI and below Eyes Reports no additional complaints ENT Reports no additional complaints Card Reports no additional complaints Resp Reports no additional complaints GI Reports no additional complaints Reports no additional complaints Physical exam (Primary Care) Vital Signs: Last Vital Signs Temp 98.3 F 12/17/24 09:19 Pulse 86 12/17/24 09:19 Resp 18 12/17/24 09:19 BP 104/66 12/17/24 09:19 Pulse Ox 98 12/17/24 09:19 Oxygen Delivery Method Room Air 12/17/24 09:19 BMI result Body Mass Index 36.7 Tobacco/Smoking Status: Tobacco use Status Tobacco use date assessed 12/17/24 12/17/24 09:23 Patient Tobacco Use Status Never used Tobacco 12/17/24 09:19 e-Cigarette/Vaping Use Never Used 12/17/24 09:19 Thrive Assessment: Date of Thrive Assessment Date Thrive assessed 09/04/24 12/17/24 09:19 Currently or been in a relationship where the following occur: No concerns reported Const General: no acute distress HENMT Head: Yes normal to inspection Resp Effort & Inspection: normal respiratory effort Auscultation: clear to auscultation bilaterally Cardio Rhythm: regular rhythm Heart sounds: S1 normal heart sound present and S2 normal heart sound present GI Inspection: Yes normal to inspection Coding Level of Care Code Est Pt Level 4 (37126) Diagnoses Vitamin D deficiency E55.9 Hyperlipidemia E78.5 Class 2 obesity due to excess calories without serious comorbidity with body mass index (BMI) of 39.0 to 39.9 in adult E66.812; E66.09; Z68.39 Obesity type: due to excess calories Obesity classification: adult class 2 (BMI 35 - 39.9) Serious obesity comorbidity presence: without serious comorbidity Body mass index: BMI 39.0-39.9 Assessment & Plan Assessment & Plan (1) Vitamin D deficiency: Code(s): E55.9 - Vitamin D deficiency, unspecified Category: Medical Plan: Continue vitamin-D supplement check the level (2) Hyperlipidemia: Code(s): E78.5 - Hyperlipidemia, unspecified Category: Medical Plan: Low-cholesterol diet increase exercise discussed with the patient check lipid profile in 3 months (3) Obesity: Code(s): E66.9 - Obesity, unspecified Category: Medical Qualifiers: Obesity type: due to excess calories Obesity classification: adult class 2 (BMI 35 - 39.9) Serious obesity comorbidity presence: without serious comorbidity Body mass index: BMI 39.0-39.9 Qualified Code(s): E66.812 - Obesity, class 2; E66.09 - Other obesity due to excess calories; Z68.39 - Body mass index [BMI] 39.0-39.9, adult Plan: Increase the bound to 10 mg weekly, continue decreasing caloric intake increasing physical activity follow-up in 3 months Orders: Orders Lipid Panel 3 Months E51.9 - Thiamine deficiency, unspecified, E55.9 - Vitamin D deficiency, unspecified, E78.5 - Hyperlipidemia, unspecified Vitamin D 25-OH Total 3 Months E51.9 - Thiamine deficiency, unspecified, E55.9 - Vitamin D deficiency, unspecified, E78.5 - Hyperlipidemia, unspecified Complete Blood Count Auto Diff 3 Months E51.9 - Thiamine deficiency, unspecified, E55.9 - Vitamin D deficiency, unspecified, E78.5 - Hyperlipidemia, unspecified Vitamin B12 and Folate 3 Months E51.9 - Thiamine deficiency, unspecified, E55.9 - Vitamin D deficiency, unspecified, E78.5 - Hyperlipidemia, unspecified Comprehensive Zenia. Panel Fast 3 Months E51.9 - Thiamine deficiency, unspecified, E55.9 - Vitamin D deficiency, unspecified, E78.5 - Hyperlipidemia, unspecified Medications: New Zepbound (tirzepatide (weight loss)) 10 mg (0.5 mL) subcut QWEEK 2 mL 1RF NS
[2024-12-17 09:19] VITALS: BP 104/66; PULSE 86; RESP 18; TEMP 36.8; O2SAT 98; BMI 36.7
--- OUTSIDE RECORDS SUMMARY | 2024-12-17 09:33 | XMS_ITS | Clinical Summary ---
Author Organization [facility] Address [address] [place] [address] Care Team Providers Care Electronic Systems Technician Name Role Phone Unavailable Primary Care Provider Unavailabl e Source Comments PLEASE NOTE, if this patient is a minor, it may be UNLAWFUL to discuss sensitive information that is contained in these records (such as FAMILY PLANNING, MENTAL HEALTH or SUBSTANCE ABUSE) with the minor patient's parent or other person without the patient's specific authorization.[facility] Immunizations Immunization Administration Dates Next Due Moderna COVID-19 Vaccine, [...] Health Maintenance Due Date Last Done Comments Anxiety Screening 1988 Diabetes Screening 1988 HPV Screening 1988 Hepatitis C Screening 1988 Pap + HPV 1988 Tobacco Screening 1988 HIV Screening 12/06/2003 Relationship Safety Screening/Counseling 12/06/2003 Hypertension Screening (#1) 2006 Imm-Hepatitis B (1 of 3 - 19 + 3-dose series) 12/06/2007 Cervical Cancer Screening 2009 Pap Smear 2009 [id number] (2023- season) 2024 021, 03/11/2021 Imm-Influenza (#1) 2024 Alcohol and Drug Screen 07/24/2024 Depression Annual Screen 07/24/2024 Imm-DTaP/Tdap/Td (2 - Td or Tdap) 01/04/2028 018 Cervical Ablation/Cold-Knife Conization Discontinued Cervical Cryotherapy Discontinued Colposcopy Discontinued Endometrial Biopsy Discontinued Excision/Leep Discontinued HPV Genotyping Discontinued Vaginal Pap Discontinued Vulvoscopy Discontinued Insurance [employer] PL[employer] Member Subscriber Plan / Payer (Ef fective 2021-Present) Name:Angelique Diaz Relation to Subscriber:Self Name:Angelique Diaz Payer ID:[id number] Group ID:Not on file Type:Medicaid Address: [facility] [address] [place] [address]
== END 2024-12-17 10:41 | disposition home or self-care (01) ==
LOC: HO.HMCC 09:05
PROVIDERS: PCP Internal Medicine; Visit Provider Internal Medicine
DX: E55.9 Vitamin D deficiency, unspecified (principal); E78.5 Hyperlipidemia, unspecified; E66.812 Obesity, class 2; E66.09 Other obesity due to excess calories; Z68.39 Body mass index [BMI] 39.0-39.9, adult

== ENCOUNTER → 2024-12-17 09:04 | Outpatient (BNVA) | payer OTHER, SELFPAY | PROVIDERS: PCP Internal Medicine; Visit Provider Internal Medicine | DX: E66.812 Obesity, class 2 (principal); E66.09 Other obesity due to excess calories; E55.9 Vitamin D deficiency, unspecified; E78.5 Hyperlipidemia, unspecified; E51.9 Thiamine deficiency, unspecified; Z68.39 Body mass index [BMI] 39.0-39.9, adult; Z79.899 Other long term (current) drug therapy | CPT/HCPCS: 99212 ==

== ENCOUNTER 2025-01-01 08:29 | Outpatient (AMB) | payer OTHER, SELFPAY ==
[2025-01-01 08:33] VITALS: BP 112/68; PULSE 89; O2SAT 98; BMI 36.7
--- NOTE | 2025-01-01 08:33 | A.OFFVIS_ITS ---
Vital Signs 01/01/25 08:33 Height 5 ft Weight 188 lb BMI 36.7 BP 112/68 Blood Pressure Location Lt brachial Position Sitting Pulse 89 Pulse Source Pulse Oximeter Pulse Oximetry (%) 98 Oxygen Delivery Method Room Air Intake Visit Reasons: Follow Up- 6mo Intake Note: Patient presents 6 month follow up for migraines. Pins and needles throughout body when in certain position Block Hand Required: No Accompanied by: Self / Same As Patient Allergies kiwi Allergy (Intermediate, Verified 01/01/25 08:43) throat itching, tongue swelling phentermine Allergy (Intermediate, Verified 01/01/25 08:43) Agitation and tachycardia doxycycline [DOXYCYCLINE] Allergy (Unknown, Verified 01/01/25 08:43) HIVES penicillin V Allergy (Unknown, Verified 01/01/25 08:43) hives Penicillins [PENICILLINS] Allergy (Unknown, Verified 01/01/25 08:43) HIVES Sulfa (Sulfonamide Antibiotics) Allergy (Unknown, Verified 01/01/25 08:43) rash sulfamethoxazole [From BACTRIM] Allergy (Unknown, Verified 01/01/25 08:43) HIVES trimethoprim [From BACTRIM] Allergy (Unknown, Verified 01/01/25 08:43) HIVES HPI Comments Details: Right-handed 32-yr-old female presents for f/u episode of convulsive syncope. Pt has noticed increased episodes BUE pins/needles/falling asleep sensation during the day and at night- when using her phone, etc. She has to shake her hands to make it stop. She also has episodes of her hands becoming cold and turning purple. She states when she was , she had BUE paresthesia s/s (which were a bit different than her current s/s) which were dx'd as probable CTS- wearing a wrist splint helped. But after she delivered the baby the s/s resolved. Notes she did not have significant weight gain w/ that . Interval [facility] tilt table test- was read as negative, however pt did have several minutes of feeling nausea and dizziness a/w HR elevation of 23 bpm. Denies any interval syncopal episodes. Can occasionally start to feel lightheaded, but this resolves w/ taking fluids. 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 06/26/2024, Previous HPI: EEG 72 hr ambulatory- normal. Brain MRI, November 2023, unremarkable, there a mild maxillary retention cysts. Pt has not had any interval seizure like activity. Saw cardiology, work-up was unremarkable. She is working w/ weight management. Her BP has been running lower, today 100/62. She is trying to drink more water. She has never had a tilt table test. Has not had any interval syncopal or convulsions since the last visit. She can have nasal congestion- does not treat this. Pt reports she has headaches and lightheadedness about once a week, which can be triggered by motion and heat. Riboflavin and Sumatriptan is helpful and tolerated well. Initial HPI form 10/26/23: Pt reports that in May 2023, she was sitting down playing dominos, felt a very bad frontal headache coming on, had to stop talking, put her head down, and closed her eyes. Her friend told her she became pale, she clenched her fists and started shaking and unresponsive x's 1 minute. No intraictal tongue biting or urinary/bowl incontinence. She did not fall over. Her friend checked her BP w/ a wrist cuff- SBP > 200. After she came to, she felt confusion, clammy, she tried to stand up but her gait was off, she was nauseous, and about 10 minutes later she vomited. She went to [facility] ER, Head CT w/o, and Head/Neck CTA- NL. After the episode, she felt very drained, low-energy, increased dizziness- off- balanced x's 1.5 weeks. And this subsided gradually. Follow-up EEG and brain MRI w/o- normal. She is seeing cardiology- Echocardiogram- normal. Currently wearing a holter monitor. Pt reports normal gestational and early development. PMH is significant for: Palpitations Pt also endorses:? Vertigo a/w off-balance, diplopia- if she moves to quickly, sometimes can trigger headache. Triggers- not eating. Has never had vestibular tx. Motion sickness- depending on the situation. Lightheadedness, can have w/wo orthostatic changes. Headaches- 7/10 frontal pressure a/w blurry vision, sees stars, diplopia- moving images, phonophobia, nausea, vertigo, activity intolerance, duration an hour w/ tx, a whole day w/o tx. frequency- a few times a week. Triggers- not eating. Brain fog- forgetfulness. History of concussion/head injury- no residual s/s, Family history of migraine, dizziness. Sister has seizures- dx'd at age 30. Pertinent denials include: Usual neck/back pain . Mood d/o, Sleep d/o Respiratory d/o, CV disease Clotting or hematology d/o, Endocrine or metabolic d/o Previous history of seizure, syncope, or drop attacks GI d/o, Constipation, Leg Cramps. Lifestyle considerations: Sleep routine: Bedtime: 10-11pm, Wake-up time: 6:30am Sleep difficulties: Denies. Has had a sleep study- was normal. Caffeine use: not usually Substance use: Denies, Exercise:?Not as much as she would like. Employment:?Out of work- as she is not driving. 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 Family planning: Possibly [facility] Medical History (Updated 01/01/25 @ 09:38 by GOSIA Thomas) Seizure Migraines Obesity Lumbar back pain Dyshidrotic eczema Kidney stones Surgical History H/O lithotripsy Family History Mother Diabetes Father Diabetes HTN (hypertension) Maternal Grandmother CVD (cardiovascular disease) Maternal Grandfather Alzheimer disease Social History Household Members Other:: 3 children, 6 yr, 3 yr 2 month old baby Housing: Apartment Alcohol intake: current Alcohol intake frequency: holidays/special occasions only Patient Tobacco Use Status: Never used Tobacco e-Cigarette/Vaping Use: Never Used service: No Current occupational status: employed Cognitive needs: No Hearing needs: No Vision needs: Yes Physical Exam Vital Signs: Last Vital Signs Pulse 89 01/01/25 08:33 BP 112/68 01/01/25 08:33 Pulse Ox 98 01/01/25 08:33 Oxygen Delivery Method Room Air 01/01/25 08:33 BMI result Body Mass Index 36.7 Const Orientation/consciousness: patient oriented x3 HEENT Head: Yes normocephalic Resp Effort & Inspection: normal respiratory effort and able to speak in complete sentences Neuro Other: Mild RUE positive Tinnel. Negtaive RUE phalen, medial compression test. Negative LUE tinnel, phalen, medial compression test, General: patient oriented x3 Cranial nerves: Yes CN's II-XII intact bilaterally Cognition (Neuro): normal cognition Gait exam (Neuro): Normal gait present Motor exam (neuro): 5/5 motor strength present throughout Pupils: Normal pupillary reactivity/response: bilateral Psych Appearance: grossly normal Mental Status: mental status grossly normal Speech and movement: Normal speech and movement present Affect: normal affect Attitude: cooperative Thought process: Normal thought process present Assessment & Plan Assessment & Plan (1) Numbness and tingling of both upper extremities: Code(s): R20.0 - Anesthesia of skin; R20.2 - Paresthesia of skin Category: Medical (2) Raynaud's phenomenon: Code(s): I73.00 - Raynaud's syndrome without gangrene Category: Medical (3) Convulsive syncope: Code(s): R55 - Syncope and collapse Category: Medical (4) Migraine with aura: Code(s): G43.109 - Migraine with aura, not intractable, without status migrainosus Category: Medical Plan For h/o convulsive syncope: Pt reports isolated convulsive syncope in May 2023, which preceded by a severe headache. Postictal symptoms of feeling very drained, low-energy, increased dizziness- off-balanced x's 1.5 week, would be longer than expected in an isolated epileptic seizure. Baseline MRI brain w/o and EEG- WL. Etiology likely due to a severe migraine/headache induced convulsive vaso-vagal syncopal episode. * Seventy-two hour ambulatory EEG- no evidence of epileptic activity * Brain MRI with and without contrast- unremarkable. * Cardiology notes, workup has been remarkable * Continue to take increase fluids. Advised to take 1-2 servings of electrolyte replacement beverage per day. * May use Meclizine 12.5mg po TID prn dizziness. * As patient has not had any interval syncopal episodes, and workup has been overall unremarkable, patient has been cleared to return to work and to drive. For BUE paresthesias in setting of possible BUE Raynaud's syndrome: * Check labs for common etiologies * BUE EMG/NCS For migraine with aura: Continue riboflavin 400 mg q.a.m. May hold magnesium 400 mg q.h.s, as patient never started Continue sumatriptan 50-100 mg p.r.n., may repeat in 2 hours, max 200 mg per day. Pt to follow-up in 6 months or sooner prn. Orders: Orders NE electromyogram (EMG) 01/01/25 R20.0 - Anesthesia of skin, R20.2 - Paresthesia of skin NE nerve conduction velocity 01/01/25 R20.0 - Anesthesia of skin, R20.2 - Paresthesia of skin Erythrocyte Sedimentation Rate 01/01/25 E51.9 - Thiamine deficiency, unspecified, I73.00 - Raynaud's syndrome without gangrene, R20.0 - Anesthesia of skin, R20.2 - Paresthesia of skin C Reactive Protein 01/01/25 E51.9 - Thiamine deficiency, unspecified, I73.00 - Raynaud's syndrome without gangrene, R20.0 - Anesthesia of skin, R20.2 - Paresthesia of skin TSH reflex Free T4 01/01/25 E51.9 - Thiamine deficiency, unspecified, I73.00 - Raynaud's syndrome without gangrene, R20.0 - Anesthesia of skin, R20.2 - Paresthesia of skin Vitamin B12 and Folate 01/01/25 E51.9 - Thiamine deficiency, unspecified, I73.00 - Raynaud's syndrome without gangrene, R20.0 - Anesthesia of skin, R20.2 - Paresthesia of skin Complete Blood Count Auto Diff 01/01/25 E51.9 - Thiamine deficiency, unspecified, I73.00 - Raynaud's syndrome without gangrene, R20.0 - Anesthesia of skin, R20.2 - Paresthesia of skin LOC Reflex Titer and Pattern 01/01/25 E51.9 - Thiamine deficiency, unspecified, I73.00 - Raynaud's syndrome without gangrene, R20.0 - Anesthesia of skin, R20.2 - Paresthesia of skin Rheumatoid Factor 01/01/25 E51.9 - Thiamine deficiency, unspecified, I73.00 - Raynaud's syndrome without gangrene, R20.0 - Anesthesia of skin, R20.2 - Paresthesia of skin Vitamin B1 01/01/25 E51.9 - Thiamine deficiency, unspecified, I73.00 - Raynaud's syndrome without gangrene, R20.0 - Anesthesia of skin, R20.2 - Paresthesia of skin Vitamin B6 01/01/25 D64.9 - Anemia, unspecified, E51.9 - Thiamine deficiency, unspecified, I73.00 - Raynaud's syndrome without gangrene, R20.0 - Anesthesia of skin, R20.2 - Paresthesia of skin Comprehensive Met. Panel 01/01/25 E51.9 - Thiamine deficiency, unspecified, I73.00 - Raynaud's syndrome without gangrene, R20.0 - Anesthesia of skin, R20.2 - Paresthesia of skin Medications: Changed From riboflavin (vitamin B2) 400 mg PO DAILY 30 days 30 tabs 6RF To riboflavin (vitamin B2) 400 mg PO DAILY 90 tabs 3RF 90 days Refilled meclizine 12.5 mg PO TID PRN 60 tabs 1RF dizziness Coding Level of Care Code Est Pt Level 4 (21411) Diagnoses Numbness and tingling of both upper extremities R20.0; R20.2 Raynaud's phenomenon I73.00 Convulsive syncope R55 Migraine with aura G43.109
--- OUTSIDE RECORDS SUMMARY | 2025-01-01 08:42 | XMS_ITS | Clinical Summary ---
Author Organization [facility] Address [address] [place] [address] Care Team Providers Care Manager Customer Name Role Phone Unavailable Primary Care Provider [...] Cervical Cancer Screening 2009 Pap Smear 2009 [id number] (2023- season) 2024 021, 03/11/2021 Imm-Influenza (#1) 2024 Alcohol and Drug Screen 07/24/2024 Depression Annual Screen 07/24/2024 Imm-DTaP/Tdap/Td (2 - Td or Tdap) 01/04/2028 018 Cervical Ablation/Cold-Knife Conization Discontinued Cervical Cryotherapy Discontinued Colposcopy Discontinued Endometrial Biopsy Discontinued Excision/Leep Discontinued HPV Genotyping Discontinued Vaginal Pap Discontinued Vulvoscopy Discontinued Insurance [employer] PLAN Member Subscriber Plan / Payer (Ef fective 2021-Present) Name:Angelique Diaz Relation to Subscriber:Self Name:Angelique Diaz Payer ID:[id number] Group ID:Not on file Type:Medicaid Address: [facility] [address] [place] [address]
== END 2025-01-01 09:45 | disposition home or self-care (01) ==
LOC: HO.HSMS 08:29
PROVIDERS: PCP Internal Medicine; Visit Provider Nurse Practitioner Family
DX: R20.0 Anesthesia of skin (principal); R20.2 Paresthesia of skin; I73.00 Raynaud's syndrome without gangrene; R55 Syncope and collapse; G43.109 Migraine with aura, not intractable, without status migrainosus
CPT/HCPCS: 99214

== ENCOUNTER → 2025-01-01 08:29 | Outpatient (BNVA) | payer OTHER, SELFPAY | PROVIDERS: PCP Internal Medicine; Visit Provider Nurse Practitioner Family | DX: R20.0 Anesthesia of skin (principal); R20.2 Paresthesia of skin; I73.00 Raynaud's syndrome without gangrene | CPT/HCPCS: 99212 ==

== ENCOUNTER 2025-02-26 09:00 | Outpatient (AMB) | payer OTHER, SELFPAY ==
[2025-02-26 09:01] VITALS: BP 98/62; PULSE 73; RESP 18; TEMP 36.4; O2SAT 98; BMI 33.2
--- NOTE | 2025-02-26 09:01 | A.OFFPC_ITS ---
Vital Signs 02/26/25 09:01 02/26/25 09:42 Height 5 ft Weight 170 lb BMI 33.2 BP 98/62 110/75 Blood Pressure Location Lt brachial Lt brachial Position Sitting Standing Respiration 18 Pulse 73 Pulse Source Pulse Oximeter Temp 97.6 F Temp Source Oral Pulse Oximetry (%) 98 Oxygen Delivery Method Room Air Intake Visit Reasons: Lightheaded with low bp Intake Note: Pt is here today for a sick visit. Pt c/o dizziness, blurry vision low BP. Allergies kiwi Allergy (Intermediate, Verified 02/26/25 09:08) throat itching, tongue swelling phentermine Allergy (Intermediate, Verified 02/26/25 09:08) Agitation and tachycardia doxycycline (DOXYCYCLINE) Allergy (Unknown, Verified 02/26/25 09:08) HIVES penicillin V Allergy (Unknown, Verified 02/26/25 09:08) hives Penicillins (PENICILLINS) Allergy (Unknown, Verified 02/26/25 09:08) HIVES Sulfa (Sulfonamide Antibiotics) Allergy (Unknown, Verified 02/26/25 09:08) rash sulfamethoxazole (From BACTRIM) Allergy (Unknown, Verified 02/26/25 09:08) HIVES trimethoprim (From BACTRIM) Allergy (Unknown, Verified 02/26/25 09:08) HIVES Medication List - Last Reconciled 02/26/25 by Luci Ny MD cholecalciferol (vitamin D3) 125 mcg PO DAILY meclizine 12.5 mg PO TID PRN riboflavin (vitamin B2) 400 mg PO DAILY 90 days sumatriptan succinate 50 - 100 mg orally at onset of headache, may repeat in 2 hrs PRN; max 2 tabs per day or 4 tabs/week (may take with Ibuprofen) 30 days thiamine HCl (vitamin B1) 100 mg PO DAILY Zepbound (tirzepatide (weight loss)) 12.5 mg (0.5 mL) subcut QWEEK NS Tobacco use date assessed: 02/26/25 Dental Screening Dental Screen Date: 02/26/25 Did you have a dental visit in the last 12 months?: No Did you have a dental problem in the last 6 months where you did not have access to dental care?: No Was dental information given to patient?: Patient declined HPI Lightheaded with low bp HPI Details Pt c/o episodes of lightheadness when getting up suddenly or standing for while on and off for 1 week. Patient denies chest pain shortness or breath palpitations loss of consciousness weakness in extremities or change in onset. 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 Patient has been taking Zepbound 12.5 mg weekly and lost another 10 lb. She has been eating small frequent meals and drinking fluids. [facility] Medical History Seizure Migraines Obesity Lumbar back pain Dyshidrotic eczema Kidney stones Surgical History H/O lithotripsy Family History Mother Diabetes Father Diabetes HTN (hypertension) Maternal Grandmother CVD (cardiovascular disease) Maternal Grandfather Alzheimer disease Social History Household Members Other:: 3 children, 6 yr, 3 yr 2 month old baby Housing: Apartment Alcohol intake: current Alcohol intake frequency: holidays/special occasions only Patient Tobacco Use Status: Never used Tobacco e-Cigarette/Vaping Use: Never Used service: No Current occupational status: employed Cognitive needs: No Hearing needs: No Vision needs: Yes Questionnaire Thrive Questionnaire Date Thrive assessed: 09/04/24 I am a: Patient What is your living situation today?: I have a steady place to live Within the past 12 months, did the food you bought not last and you didn't have the money to get more?: Never true Within the past 12 months, did you worry whether your food would run out before you got money to buy more?: Never true Do you have trouble paying for medicines?: No Do you have trouble getting transportation to medical appointments?: No Do you have trouble paying your heating and electricity bill?: Yes Do you have trouble taking care of your child, family member or friend?: No Do you have trouble with day-to-day activities such as bathing, preparing meals, shopping, managing finances, etc.?: No Are you currently unemployed and looking for a job?: No Are you interested in more education?: No Please select the resources that you would like help with: Utilities Currently or been in a relationship where the following occur: No concerns reported THRIVE Score: 1 DONTRELL-7 AMB Questionnaire DONTRELL-7 Date DONTRELL - 7 assessed: 09/04/24 Source: Developed by Drs. Benjamin Alvarez, Nanci Child, Oscar Dooley and colleagues, with an educational elizabeth from [employer]. Review of Systems Const All systems reviewed & are unremarkable except as noted in HPI and below Eyes Reports no additional complaints ENT Reports no additional complaints Card Reports no additional complaints Resp Reports no additional complaints GI Reports no additional complaints Reports no additional complaints Physical exam (Primary Care) Vital Signs: Last Vital Signs Temp 97.6 F 02/26/25 09:01 Pulse 73 02/26/25 09:01 Resp 18 02/26/25 09:01 BP 98/62 02/26/25 09:01 Pulse Ox 98 02/26/25 09:01 Oxygen Delivery Method Room Air 02/26/25 09:01 BMI result Body Mass Index 33.2 Tobacco/Smoking Status: Tobacco use Status Tobacco use date assessed 02/26/25 02/26/25 09:08 Patient Tobacco Use Status Never used Tobacco 02/26/25 09:08 e-Cigarette/Vaping Use Never Used 02/26/25 09:01 Thrive Assessment: Date of Thrive Assessment Date Thrive assessed 09/04/24 02/26/25 09:01 Currently or been in a relationship where the following occur: No concerns reported Const General: no acute distress HENMT Head: Yes normal to inspection Ears: TM's normal bilaterally Mouth: Normal oral and palatal mucosa present Eyes General: appearance normal, both eyes and all related structures Neck Neck: Yes no lymphadenopathy and Yes supple Resp Effort & Inspection: normal respiratory effort Auscultation: clear to auscultation bilaterally Cardio Rhythm: regular rhythm Heart sounds: S1 normal heart sound present and S2 normal heart sound present GI Inspection: Yes normal to inspection Palpation (GI): Soft to palpation Extrem General: Yes no clubbing, cyanosis or edema Coding Level of Care Code Est Pt Level 3 (83559) Diagnoses Dizziness R42 Assessment & Plan Assessment & Plan (1) Dizziness: Code(s): R42 - Dizziness and giddiness Category: Medical Plan: For the episodes of lightheadedness and borderline low blood pressure. Patient was advised to increase fluid intake, including electrolyte solution. Check c omprehensive panel CBC iron TSH and random cortisol level today Orders: Orders Comprehensive Met. Panel Today E51.9 - Thiamine deficiency, unspecified, E55.9 - Vitamin D deficiency, unspecified, R42 - Dizziness and giddiness, Z00.00 - Encounter for general adult medical examination without abnormal findings Vitamin B1 Today E51.9 - Thiamine deficiency, unspecified, E55.9 - Vitamin D deficiency, unspecified, R42 - Dizziness and giddiness, Z00.00 - Encounter for general adult medical examination without abnormal findings Vitamin B12 and Folate Today E51.9 - Thiamine deficiency, unspecified, E55.9 - Vitamin D deficiency, unspecified, R42 - Dizziness and giddiness, Z00.00 - Encounter for general adult medical examination without abnormal findings Cortisol Random Today E51.9 - Thiamine deficiency, unspecified, E55.9 - Vitamin D deficiency, unspecified, R42 - Dizziness and giddiness, Z00.00 - Encounter for general adult medical examination without abnormal findings Complete Blood Count Auto Diff Today E51.9 - Thiamine deficiency, unspecified, E55.9 - Vitamin D deficiency, unspecified, R42 - Dizziness and giddiness, Z00.00 - Encounter for general adult medical examination without abnormal findings IRON PROFILE Today E51.9 - Thiamine deficiency, unspecified, E55.9 - Vitamin D deficiency, unspecified, R42 - Dizziness and giddiness, Z00.00 - Encounter for general adult medical examination without abnormal findings TSH reflex Free T4 Today E51.9 - Thiamine deficiency, unspecified, E55.9 - Vitamin D deficiency, unspecified, R42 - Dizziness and giddiness, Z00.00 - Encounter for general adult medical examination without abnormal findings
--- OUTSIDE RECORDS SUMMARY | 2025-02-26 09:12 | XMS_ITS | Clinical Summary ---
Author Organization [facility] Address [address] [place] [address] Care Team Providers Care Guard Museum Name Role Phone Unavailable Primary Care Provider [...] Cervical Cancer Screening 2009 Pap Smear 2009 [id number] (2023- season) 2024 021, 03/11/2021 Imm-Influenza (#1) 2024 Alcohol and Drug Screen 07/24/2024 Depression Annual Screen 07/24/2024 Imm-DTaP/Tdap/Td (2 - Td or Tdap) 01/04/2028 018 Cervical Ablation/Cold-Knife Conization Discontinued Cervical Cryotherapy Discontinued Colposcopy Discontinued Endometrial Biopsy Discontinued Excision/Leep Discontinued HPV Genotyping Discontinued Vaginal Pap Discontinued Vulvoscopy Discontinued Insurance [employer] Member Subscriber Plan / Payer (Ef fective 2021-Present) Name:Angelique Diaz Relation to Subscriber:Self Name:Angelique Diaz Payer ID:[id number] Group ID:Not on file Type:Medicaid Address: [facility] [address] [place] [address]
[2025-02-26 09:42] VITALS: BP 110/75
== END 2025-02-26 09:47 | disposition home or self-care (01) ==
LOC: HO.HMCC 09:00
PROVIDERS: Visit Provider Internal Medicine
DX: R42 Dizziness and giddiness (principal)

== ENCOUNTER → 2025-02-26 09:00 | Outpatient (BNVA) | payer OTHER, SELFPAY | PROVIDERS: Visit Provider Internal Medicine | DX: R42 Dizziness and giddiness (principal); E51.9 Thiamine deficiency, unspecified; E55.9 Vitamin D deficiency, unspecified | CPT/HCPCS: 99212 ==

== ENCOUNTER 2025-03-07 11:00 | Outpatient (REF) | payer OTHER, SELFPAY ==
--- OUTSIDE RECORDS SUMMARY | 2025-03-07 11:11 | XMS_ITS | Clinical Summary ---
Author Organization [facility] Address [address] [place] [address] Care Team Providers Care Audio Narrator Name Role Phone Unavailable Primary Care Provider [...] Cervical Cancer Screening 2009 Pap Smear 2009 [id number] (2023- season) 2024 021, 03/11/2021 Alcohol and Drug Screen 07/24/2024 Depression Annual Screen 07/24/2024 Imm-Influenza (#1) 2025 Imm-DTaP/Tdap/Td (2 - Td or Tdap) 01/04/2028 018 Cervical Ablation/Cold-Knife Conization Discontinued Cervical Cryotherapy Discontinued Colposcopy Discontinued Endometrial Biopsy Discontinued Excision/Leep Discontinued HPV Genotyping Discontinued Vaginal Pap Discontinued Vulvoscopy Discontinued Insurance [employer] Member Subscriber Plan / Payer (Ef fective 2021-Present) Name:Angelique Diaz Relation to Subscriber:Self Name:Angelique Diaz Payer ID:[id number] Group ID:Not on file Type:Medicaid Address: [facility] [address] [place] [address]
[2025-03-07 13:22] LABS: MANUAL DIFF FLAG NO
[2025-03-07 13:49] LABS: Hematocrit 39.9 % (37.0-47.0); Hemoglobin 13.4 g/dl (12.0-16.0); Imm Gran Abs Auto 0.01 X10*3/uL (0.00-0.03); Imm Gran Pct Auto 0.2 % (0.0-0.4); Lymphocytes Absolute Auto 1.2 X10*3/uL (1.2-4.9); Mean Corpuscular HGB Conc 33.6 g/dl (31.0-35.0); Mean Corpuscular Hemoglobin 28.8 pg (27.0-33.0); Mean Corpuscular Volume 85.8 fL (80.0-98.0); NRBC Abs Auto 0.000 X10*3/uL (0.0-0.012); NRBC Pct Auto 0.0 /100WBC (0.0-0.2); Platelet Count 296 X10*3/uL (160-400); Red Blood Count 4.65 X10*6/uL (4.20-5.50); White Blood Count 4.2 X10*3/uL (4.8-10.8)
[2025-03-07 14:14] LABS: Alanine Aminotransferase 28 U/L (0-31); Albumin Level 4.7 g/dL (3.5-5.0); Alkaline Phosphatase 79 U/L (39-117); Anion Gap 13 (12-20); Aspartate Amino Transferase 23 U/L (5-31); Blood Urea Nitrogen 16 mg/dL (9-16); Calcium 9.7 mg/dL (8.4-10.2); Carbon Dioxide 23 mmol/L (22-29); Chloride 105 mmol/L (96-108); Cholesterol 215 mg/dL (<200); Estimated Glomerular Filt Rate > 60; HDL Cholesterol 52 mg/dL (>40); Iron 83 mcg/dL (30-160); Percent Iron Saturation 27 % (15-50); Potassium 3.9 mmol/L (3.3-5.1); Sodium 137 mmol/L (135-145); Total Iron Binding Capacity 310 mcg/dL (228-428); Total Protein 7.7 g/dL (6.5-8.0); Triglycerides 52 mg/dL (<150); Unsaturated Iron Binding 227 ug/dL
[2025-03-07 14:18] LABS: Folate 7.3 ng/mL (> or = 4.0); Vitamin B12 554 pg/mL (200-900)
[2025-03-10 22:12] LABS: Anti Nuclear Antibody Screen POSITIVE (NEGATIVE); Anti Nuclear Antibody Titer 1:320 titer
== END 2025-03-07 11:01 | disposition home or self-care (01) ==
LOC: HO.HMGCLDS 11:00
PROVIDERS: PCP Internal Medicine; Referring Provider Nurse Practitioner Family; Visit Provider Internal Medicine
DX: Z00.00 Encounter for general adult medical examination without abnormal findings (principal); I73.00 Raynaud's syndrome without gangrene; E51.9 Thiamine deficiency, unspecified; E55.9 Vitamin D deficiency, unspecified; E78.5 Hyperlipidemia, unspecified; R42 Dizziness and giddiness; R20.0 Anesthesia of skin; R20.2 Paresthesia of skin; D64.9 Anemia, unspecified
CPT/HCPCS: 36415; 80053; 80061; 82306; 82533; 82607; 82746; 83540; 84207; 84425; 84443; 85025; 85652; 86038; 86039; 86140; 86431

== ENCOUNTER 2025-03-11 10:32 | Outpatient (REF) | payer OTHER, SELFPAY ==
--- NOTE | 2025-03-11 10:34 | EMG_ITS ---
Patient Complaints: Numbness and tingling of both upper extremities Bilateral median and ulnar motor and sensory studies were performed bilateral radial sensory and median and lateral antecubital brachial sensory studies were performed and bilateral EMG needle examination was performed. Impression: Mild right median neuropathy across carpal tunnel. Otherwise no significant abnormality noted. MTDD
--- OUTSIDE RECORDS SUMMARY | 2025-03-11 11:58 | XMS_ITS | Clinical Summary ---
Author Organization [facility] Address [address] [place] [address] Care Team Providers Care Composite Engineer Name Role Phone Unavailable Primary Care Provider [...] Cervical Cancer Screening 2009 Pap Smear 2009 [id number] (2023- season) 2024 021, 03/11/2021 Alcohol and Drug Screen 07/24/2024 Depression Annual Screen 07/24/2024 Imm-Influenza (#1) 2025 Imm-DTaP/Tdap/Td (2 - Td or Tdap) 01/04/2028 018 Cervical Ablation/Cold-Knife Conization Discontinued Cervical Cryotherapy Discontinued Colposcopy Discontinued Endometrial Biopsy Discontinued Excision/Leep Discontinued HPV Genotyping Discontinued Vaginal Pap Discontinued Vulvoscopy Discontinued Insurance [employer] Member Subscriber Plan / Payer (Ef fective 2021-Present) Name:Angelique Diaz Relation to Subscriber:Self Name:Angelique Diaz Payer ID:[id number] Group ID:Not on file Type:Medicaid Address: [facility] [address] [place] [address]
== END 2025-03-11 10:33 | disposition home or self-care (01) ==
LOC: HO.NEURO 10:32
PROVIDERS: PCP Internal Medicine; Visit Provider Nurse Practitioner Family
DX: G56.11 Other lesions of median nerve, right upper limb (principal); R20.0 Anesthesia of skin; R20.2 Paresthesia of skin
CPT/HCPCS: 95886; 95912

== ENCOUNTER → 2025-03-11 10:34 | Outpatient (BNV) | payer OTHER, SELFPAY | PROVIDERS: PCP Internal Medicine; Visit Provider Psychiatry & Neurology Neurology | DX: R20.2 Paresthesia of skin (principal) | CPT/HCPCS: 95886; 95913 ==

== ENCOUNTER 2025-07-01 10:46 | Outpatient (AMB) | payer OTHER, SELFPAY ==
--- NOTE | 2025-07-01 10:53 | MHC.OFFWIV ---
Intake Vital Signs 07/01/25 10:54 Height 5 ft Weight 165 lb BMI 32.2 BP 116/64 Blood Pressure Location Rt brachial Position Sitting Pulse 61 Pulse Source Pulse Oximeter Pulse Oximetry (%) 99 Oxygen Delivery Method Room Air Intake Visit Reasons: EP-lower back pain WC injury Intake Note: Patient presents c/o lower back pain related to an injury at work on June 14. Patient states she slipped and fell & landed on lower back, was seen at 2 days later & was told she has tenderness on L5 & S1. Patient Tobacco Use Status: Never used Tobacco Allergies kiwi Allergy (Intermediate, Verified 07/01/25 10:57) throat itching, tongue swelling phentermine Allergy (Intermediate, Verified 07/01/25 10:57) Agitation and tachycardia doxycycline (DOXYCYCLINE) Allergy (Unknown, Verified 07/01/25 10:57) HIVES penicillin V Allergy (Unknown, Verified 07/01/25 10:57) hives Penicillins (PENICILLINS) Allergy (Unknown, Verified 07/01/25 10:57) HIVES Sulfa (Sulfonamide Antibiotics) Allergy (Unknown, Verified 07/01/25 10:57) rash sulfamethoxazole (From BACTRIM) Allergy (Unknown, Verified 07/01/25 10:57) HIVES trimethoprim (From BACTRIM) Allergy (Unknown, Verified 07/01/25 10:57) HIVES Do you need a note to return to daycare/school/sports/work: Yes HPI HPI Comments History of Present Illness Details History - The patient is a 34-year-old female presenting with low back pain. - She reports the pain started after a slip and fall, landing on her low back at work on June 14. - She was evaluated at an urgent care on [facility], where X-rays were performed, and she was informed of tenderness at L5 and S1 but is not sure of XR results. - Following the initial visit to Urgent Care, she was referred to [facility] but has been unable to schedule an appointment as they do not answer the phone. - Her employer, [employer], requires an updated note regarding her condition.She is on light duty . - For pain, she uses Advil and heat, and she notes an inability to bend over to touch her toes. - Has not gone to . [facility] Medical History Seizure Migraines Obesity Lumbar back pain Dyshidrotic eczema Kidney stones Surgical History H/O lithotripsy Family History Mother Diabetes Father Diabetes HTN (hypertension) Maternal Grandmother CVD (cardiovascular disease) Maternal Grandfather Alzheimer disease Social History Household Members Other:: 3 children, 6 yr, 3 yr 2 month old baby Housing: Apartment Alcohol intake: current Alcohol intake frequency: holidays/special occasions only Patient Tobacco Use Status: Never used Tobacco e-Cigarette/Vaping Use: Never Used service: No Current occupational status: employed Cognitive needs: No Hearing needs: No Vision needs: Yes Review of Systems Narrative Review of Systems - Musculoskeletal: Reports low back pain and an inability to bend forward to touch her toes. All systems reviewed and are unremarkable except as noted in HPI Physical Exam Exam Exam: Physical Exam General: cooperative, healthy appearing and comfortable, patient oriented x3 Head: Yes normal to inspection and Yes normocephalic General nose exam: Normal external nose present Face and sinus: Yes normal facial exam Effort & Inspection: normal respiratory effort and able to speak in complete sentences Back/spine: cervical, thoracic and lumbar spine normal to inspection cervical ROM normal, thoracic ROM normal, lumbar ROM unable to bend to touch toes, can flex 45 degrees, extend, lateral rotate right and left. no Cervical or thoracic spine tenderness, +lumbar spine tenderness at L5/S1, no skin changes Extremities: moving extremities normally Neuro: A&O x3, gait normal Vital Signs: Last Vital Signs Pulse 61 07/01/25 10:54 BP 116/64 07/01/25 10:54 Pulse Ox 99 07/01/25 10:54 Oxygen Delivery Method Room Air 07/01/25 10:54 BMI result Body Mass Index 32.2 Assessment & Plan Assessment & Plan (1) Lumbar back pain: Code(s): M54.5 - Low back pain Plan Plan - A work note will be provided to extend her 'light duty as detailed on prior note, do not lift over 5lbs, do not stand for prolonged period of time. - The patient was informed that this facility does not manage workman's compensation claims or fill out associated paperwork. - For pain management, it was recommended to try Aleve for longer-lasting relief, as well as ice and heat/lidocaine patches. - A new referral will be placed to the [facility] with Dr. Reno to facilitate a potentially sooner orthopedic evaluation. - The patient was given the phone number for the [facility] and encouraged to call if she does not hear from them. - No new imaging was ordered, as an X-ray was recently performed. - The patient was advised to obtain the results from her recent X-ray to bring to her specialist appointment. Patient was informed and verbally consented to the use of an ambient scribe for clinic note documentation during this visit. Orders: Referrals Neuro Spine Referral M54.5 - Low back pain Coding Level of Care Code Est Pt Level 3 (66797) Diagnoses Lumbar back pain M54.5
[2025-07-01 10:54] VITALS: BP 116/64; PULSE 61; O2SAT 99; BMI 32.2
== END 2025-07-01 11:43 | disposition home or self-care (01) ==
PROVIDERS: PCP Internal Medicine; Visit Provider Physician Assistant
DX: M54.50 Low back pain, unspecified (principal)

== ENCOUNTER → 2025-07-01 10:46 | Outpatient (BNVA) | payer OTHER, SELFPAY | PROVIDERS: PCP Internal Medicine; Visit Provider Physician Assistant | DX: M54.50 Low back pain, unspecified (principal) | CPT/HCPCS: 99212 ==

== ENCOUNTER 2025-07-09 09:21 | Outpatient (AMB) | payer OTHER, SELFPAY ==
[2025-07-09 09:33] VITALS: BP 90/70; PULSE 81; O2SAT 99; BMI 31.2
--- NOTE | 2025-07-09 09:33 | A.OFFVIS_ITS ---
Vital Signs 07/09/25 09:33 Height 5 ft Weight 160 lb BMI 31.2 BP 90/70 Blood Pressure Location Rt brachial Position Sitting Pulse 81 Pulse Source Pulse Oximeter Pulse Oximetry (%) 99 Oxygen Delivery Method Room Air Intake Visit Reasons: 6 mo follow up Intake Note: Patient presents 6 month follow up for migraines. Pins and needles throughout body when in certain position [employer] Required: No Accompanied by: Self / Same As Patient Allergies kiwi Allergy (Intermediate, Verified 07/11/25 14:25) throat itching, tongue swelling phentermine Allergy (Intermediate, Verified 07/11/25 14:25) Agitation and tachycardia doxycycline (DOXYCYCLINE) Allergy (Unknown, Verified 07/11/25 14:25) HIVES penicillin V Allergy (Unknown, Verified 07/11/25 14:25) hives Penicillins (PENICILLINS) Allergy (Unknown, Verified 07/11/25 14:25) HIVES Sulfa (Sulfonamide Antibiotics) Allergy (Unknown, Verified 07/11/25 14:25) rash sulfamethoxazole (From BACTRIM) Allergy (Unknown, Verified 07/11/25 14:25) HIVES trimethoprim (From BACTRIM) Allergy (Unknown, Verified 07/11/25 14:25) HIVES Medication List - Last Reconciled 07/09/25 by GOSIA Thomas cholecalciferol (vitamin D3) 125 mcg PO DAILY meclizine 12.5 mg PO TID PRN riboflavin (vitamin B2) 400 mg PO DAILY 90 days sumatriptan succinate 50 - 100 mg orally at onset of headache, may repeat in 2 hrs PRN; max 2 tabs per day or 4 tabs/week (may take with Ibuprofen) 30 days thiamine HCl (vitamin B1) 100 mg PO DAILY Zepbound (tirzepatide (weight loss)) 15 mg (0.5 mL) subcut QWEEK NS HPI Comments Details: Right-handed 34-yr-old female presents for f/u episode of migraine, UE tingling, labs/EMG, and h/o convulsive syncope. Interval labs: vit B1 7 L, LOC 1:320 fine speckled. EMG/NCS: Impression: Mild right median neuropathy across carpal tunnel. She can very cold (into her bones), fingers turn purple/cold, R > L finger numbness tingling, She also endorses occasional orthoepic lightheadedness. She denies rashes, joint pain, joint swelling, miscarriages, blood clotting disorders, Reports headaches are better. She states that taking the ordered supplements, losing weight on Zepbound, and prn Sumatriptan is helpful. She denies interval syncope, but can have orthostatic lightheadedness. BP today is 90/70. She states it came be as low as 80/60. She had reduced her slat intake to try to reduce her overall CV risk factors, as she has strong family h/o diabetes. 01/01/2025, HPI: Pt has noticed increased episodes BUE pins/needles/falling asleep sensation during the day and at night- when using her phone, etc. She has to shake her hands to make it stop. She also has episodes of her hands becoming cold and turning purple. She states when she was , she had BUE paresthesia s/s (which were a bit different than her current s/s) which were dx'd as probable CTS- wearing a wrist splint helped. But after she delivered the baby the s/s resolved. Notes she did not have significant weight gain w/ that . Interval [facility] tilt table test- was read as negative, however pt did have several minutes of feeling nausea and dizziness a/w HR elevation of 23 bpm. Denies any interval syncopal episodes. Can occasionally start to feel lightheaded, but this resolves w/ taking fluids. 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 06/26/2024, Previous HPI: EEG 72 hr ambulatory- normal. Brain MRI, November 2023, unremarkable, there a mild maxillary retention cysts. Pt has not had any interval seizure like activity. Saw cardiology, work-up was unremarkable. She is working w/ weight management. Her BP has been running lower, today 100/62. She is trying to drink more water. She has never had a tilt table test. Has not had any interval syncopal or convulsions since the last visit. She can have nasal congestion- does not treat this. Pt reports she has headaches and lightheadedness about once a week, which can be triggered by motion and heat. Riboflavin and Sumatriptan is helpful and tolerated well. Initial HPI form 10/26/23: Pt reports that in May 2023, she was sitting down playing dominos, felt a very bad frontal headache coming on, had to stop talking, put her head down, and closed her eyes. Her friend told her she became pale, she clenched her fists and started shaking and unresponsive x's 1 minute. No intraictal tongue biting or urinary/bowl incontinence. She did not fall over. Her friend checked her BP w/ a wrist cuff- SBP > 200. After she came to, she felt confusion, clammy, she tried to stand up but her gait was off, she was nauseous, and about 10 minutes later she vomited. She went to [facility] ER, Head CT w/o, and Head/Neck CTA- NL. After the episode, she felt very drained, low-energy, increased dizziness- off- balanced x's 1.5 weeks. And this subsided gradually. Follow-up EEG and brain MRI w/o- normal. She is seeing cardiology- Echocardiogram- normal. Currently wearing a holter monitor. Pt reports normal gestational and early development. PMH is significant for: Palpitations Pt also endorses:? Vertigo a/w off-balance, diplopia- if she moves to quickly, sometimes can trigger headache. Triggers- not eating. Has never had vestibular tx. Motion sickness- depending on the situation. Lightheadedness, can have w/wo orthostatic changes. Headaches- /10 frontal pressure a/w blurry vision, sees stars, diplopia- moving images, phonophobia, nausea, vertigo, activity intolerance, duration an hour w/ tx, a whole day w/o tx. frequency- a few times a week. Triggers- not eating. Brain fog- forgetfulness. History of concussion/head injury- no residual s/s, Family history of migraine, dizziness. Sister has seizures- dx'd at age 30. Pertinent denials include: Usual neck/back pain . Mood d/o, Sleep d/o Respiratory d/o, CV disease Clotting or hematology d/o, Endocrine or metabolic d/o Previous history of seizure, syncope, or drop attacks GI d/o, Constipation, Leg Cramps. Lifestyle considerations: Sleep routine: Bedtime: 10-11pm, Wake-up time: 6:30am Sleep difficulties: Denies. Has had a sleep study- was normal. Caffeine use: not usually Substance use: Denies, Exercise:?Not as much as she would like. Employment:?Out of work- as she is not driving. 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 Family planning: Possibly [facility] Medical History Seizure Migraines Obesity Lumbar back pain Dyshidrotic eczema Kidney stones Surgical History H/O lithotripsy Family History Mother Diabetes Father Diabetes HTN (hypertension) Maternal Grandmother CVD (cardiovascular disease) Maternal Grandfather Alzheimer disease Social History Household Members Other:: 3 children, 6 yr, 3 yr 2 month old baby Housing: Apartment Alcohol intake: current Alcohol intake frequency: holidays/special occasions only Patient Tobacco Use Status: Never used Tobacco e-Cigarette/Vaping Use: Never Used service: No Current occupational status: employed Cognitive needs: No Hearing needs: No Vision needs: Yes Physical Exam Vital Signs: Last Vital Signs Pulse 81 07/09/25 09:33 BP 90/70 07/09/25 09:33 Pulse Ox 99 07/09/25 09:33 Oxygen Delivery Method Room Air 07/09/25 09:33 BMI result Body Mass Index 31.2 Const Orientation/consciousness: patient oriented x3 HEENT Head: Yes normocephalic Resp Effort & Inspection: normal respiratory effort and able to speak in complete sentences Neuro General: patient oriented x3 Cranial nerves: Yes CN's II-XII intact bilaterally Cognition (Neuro): normal cognition Gait exam (Neuro): Normal gait present Motor exam (neuro): 5/5 motor strength present throughout Pupils: Normal pupillary reactivity/response: bilateral Psych Appearance: grossly normal Mental Status: mental status grossly normal Speech and movement: Normal speech and movement present Affect: normal affect Attitude: cooperative Thought process: Normal thought process present Assessment & Plan Assessment & Plan (1) Migraine with aura: Code(s): G43.109 - Migraine with aura, not intractable, without status migrainosus Category: Medical Qualifiers: Status migrainosus presence: without status migrainosus Intractability: not intractable Qualified Code(s): G43.109 - Migraine with aura, not intractable, without status migrainosus (2) Numbness and tingling of both upper extremities: Code(s): R20.0 - Anesthesia of skin; R20.2 - Paresthesia of skin Category: Medical (3) Raynaud's phenomenon: Code(s): I73.00 - Raynaud's syndrome without gangrene Category: Medical Qualifiers: Raynaud?s-associated gangrene presence: without gangrene Qualified Code(s): I73.00 - Raynaud's syndrome without gangrene (4) Convulsive syncope: Code(s): R55 - Syncope and collapse Category: Medical (5) Vitamin D deficiency: Code(s): E55.9 - Vitamin D deficiency, unspecified Category: Medical (6) Vitamin B1 deficiency: Code(s): E51.9 - Thiamine deficiency, unspecified Category: Medical (7) Positive LOC (antinuclear antibody): Code(s): R76.8 - Other specified abnormal immunological findings in serum Category: Medical Plan For h/o convulsive syncope: Pt reports isolated convulsive syncope in May 2023, which preceded by a severe headache. Postictal symptoms of feeling very drained, low-energy, increased dizziness- off-balanced x's 1.5 week, would be longer than expected in an isolated epileptic seizure. Baseline MRI brain w/o and EEG- [facility]. Etiology likely due to a severe migraine/headache induced convulsive vaso-vagal syncopal episode. * Seventy-two hour ambulatory EEG- no evidence of epileptic activity * Brain MRI with and without contrast- unremarkable. * Cardiology notes, workup has been remarkable * Continue to take increase fluids. Advised to take 1-2 servings of electrolyte replacement beverage per day. * May use Meclizine 12.5mg po TID prn dizziness. * As patient has not had any interval syncopal episodes, and workup has been overall unremarkable, patient has been cleared to return to work and to drive. For BUE paresthesias in setting of possible BUE Raynaud's syndrome, interval positive LOC: * We will recheck labs, and follow-up LOC * Continue thiamine supplement * 03/11/2025, BUE EMG/NCS: Mild right median neuropathy across carpal tunnel * Trial an OTC cocked up carpal tunnel splint * If this is ineffective, consider referral to OT and/or orthopedics For migraine with aura: Continue riboflavin 400 mg q.a.m. May hold magnesium 400 mg q.h.s, as patient never started Continue sumatriptan 50-100 mg p.r.n., may repeat in 2 hours, max 200 mg per day. Pt to follow-up in 6 months or sooner prn. Orders: Orders Complete Blood Count Auto Diff 07/11/25 E51.9 - Thiamine deficiency, unspecified, E55.9 - Vitamin D deficiency, unspecified, I73.00 - Raynaud's syndrome without gangrene, R76.8 - Other specified abnormal immunological findings in serum Vitamin D 25-OH (D2 and D3) 07/11/25 E51.9 - Thiamine deficiency, unspecified, E55.9 - Vitamin D deficiency, unspecified, I73.00 - Raynaud's syndrome without gangrene, R76.8 - Other specified abnormal immunological findings in serum Complement C3 07/11/25 E51.9 - Thiamine deficiency, unspecified, E55.9 - Vitamin D deficiency, unspecified, I73.00 - Raynaud's syndrome without gangrene, R76.8 - Other specified abnormal immunological findings in serum LOC Reflex Titer and Pattern 07/11/25 E51.9 - Thiamine deficiency, unspecified, E55.9 - Vitamin D deficiency, unspecified, I73.00 - Raynaud's syndrome without gangrene, R76.8 - Other specified abnormal immunological findings in serum C Reactive Protein 07/11/25 E51.9 - Thiamine deficiency, unspecified, E55.9 - Vitamin D deficiency, unspecified, I73.00 - Raynaud's syndrome without gangrene, R76.8 - Other specified abnormal immunological findings in serum Comprehensive Met. Panel 07/11/25 E51.9 - Thiamine deficiency, unspecified, E55.9 - Vitamin D deficiency, unspecified, I73.00 - Raynaud's syndrome without gangrene, R76.8 - Other specified abnormal immunological findings in serum Erythrocyte Sedimentation Rate 07/11/25 E51.9 - Thiamine deficiency, unspecified, E55.9 - Vitamin D deficiency, unspecified, I73.00 - Raynaud's syndrome without gangrene, R76.8 - Other specified abnormal immunological findin gs in serum Complement C4 07/11/25 E51.9 - Thiamine deficiency, unspecified, E55.9 - Vitamin D deficiency, unspecified, I73.00 - Raynaud's syndrome without gangrene, R76.8 - Other specified abnormal immunological findings in serum Anti DNA DS Antibody 07/11/25 E51.9 - Thiamine deficiency, unspecified, E55.9 - Vitamin D deficiency, unspecified, I73.00 - Raynaud's syndrome without gangrene, R76.8 - Other specified abnormal immunological findings in serum Vitamin B1 07/11/25 E51.9 - Thiamine deficiency, unspecified, E55.9 - Vitamin D deficiency, unspecified, I73.00 - Raynaud's syndrome without gangrene, R76.8 - Other specified abnormal immunological findings in serum Coding Level of Care Code Est Pt Level 4 (94035) Diagnoses Migraine with aura and without status migrainosus, not intractable G43.109 Status migrainosus presence: without status migrainosus Intractability: not intractable Numbness and tingling of both upper extremities R20.0; R20.2 Raynaud's phenomenon without gangrene I73.00 Raynaud?s-associated gangrene presence: without gangrene Convulsive syncope R55 Vitamin D deficiency E55.9 Vitamin B1 deficiency E51.9 Positive LOC (antinuclear antibody) R76.8
== END 2025-07-09 10:29 | disposition home or self-care (01) ==
LOC: HO.HSMS 09:22
PROVIDERS: PCP Internal Medicine; Visit Provider Nurse Practitioner Family
DX: G43.109 Migraine with aura, not intractable, without status migrainosus (principal); R20.0 Anesthesia of skin; R20.2 Paresthesia of skin; I73.00 Raynaud's syndrome without gangrene; R55 Syncope and collapse; E55.9 Vitamin D deficiency, unspecified; E51.9 Thiamine deficiency, unspecified; R76.89 Other specified abnormal immunological findings in serum
CPT/HCPCS: 99214

== ENCOUNTER → 2025-07-09 09:21 | Outpatient (BNVA) | payer OTHER, SELFPAY | LOC: CF 12:12 | PROVIDERS: PCP Internal Medicine; Visit Provider Nurse Practitioner Family | DX: G43.109 Migraine with aura, not intractable, without status migrainosus (principal); I73.00 Raynaud's syndrome without gangrene; E55.9 Vitamin D deficiency, unspecified; E51.9 Thiamine deficiency, unspecified; R20.0 Anesthesia of skin; R20.2 Paresthesia of skin; R55 Syncope and collapse; R76.89 Other specified abnormal immunological findings in serum | CPT/HCPCS: 99212 ==

== ENCOUNTER 2025-07-11 14:21 | Outpatient (REF) | payer OTHER, SELFPAY ==
[2025-07-11 16:53] LABS: MANUAL DIFF FLAG NO
[2025-07-11 17:03] LABS: Hematocrit 38.7 % (37.0-47.0); Hemoglobin 12.7 g/dl (12.0-16.0); Imm Gran Abs Auto 0.01 X10*3/uL (0.00-0.03); Imm Gran Pct Auto 0.3 % (0.0-0.4); Lymphocytes Absolute Auto 1.3 X10*3/uL (1.2-4.9); Mean Corpuscular HGB Conc 32.8 g/dl (31.0-35.0); Mean Corpuscular Hemoglobin 28.2 pg (27.0-33.0); Mean Corpuscular Volume 85.8 fL (80.0-98.0); NRBC Abs Auto 0.000 X10*3/uL (0.0-0.012); NRBC Pct Auto 0.0 /100WBC (0.0-0.2); Platelet Count 269 X10*3/uL (160-400); Red Blood Count 4.51 X10*6/uL (4.20-5.50); White Blood Count 3.8 X10*3/uL (4.8-10.8)
[2025-07-11 18:17] LABS: Alanine Aminotransferase 15 U/L (0-31); Albumin Level 4.6 g/dL (3.5-5.0); Alkaline Phosphatase 83 U/L (39-117); Anion Gap 9 (12-20); Aspartate Amino Transferase 21 U/L (5-31); Blood Urea Nitrogen 14 mg/dL (9-16); Calcium 9.5 mg/dL (8.4-10.2); Carbon Dioxide 27 mmol/L (22-29); Chloride 106 mmol/L (96-108); Estimated Glomerular Filt Rate > 60; Potassium 3.8 mmol/L (3.3-5.1); Sodium 138 mmol/L (135-145); Total Protein 7.6 g/dL (6.5-8.0)
[2025-07-16 14:33] LABS: Vitamin D 25-OH, D2 <4 ng/mL; Vitamin D 25-OH, D3 27 ng/mL; Vitamin D 25-OH, Total 27 ng/mL (30-100)
[2025-07-16 21:38] LABS: Anti Nuclear Antibody Screen POSITIVE (NEGATIVE); Anti Nuclear Antibody Titer 1:320 titer
== END 2025-07-11 14:22 | disposition home or self-care (01) ==
LOC: HO.HMGCLDS 14:21
PROVIDERS: Absent Provider Nurse Practitioner Family; PCP Internal Medicine; Visit Provider Internal Medicine
DX: S39.92XD Unspecified injury of lower back, subsequent encounter (principal); M54.50 Low back pain, unspecified; E55.9 Vitamin D deficiency, unspecified; E51.9 Thiamine deficiency, unspecified; I73.00 Raynaud's syndrome without gangrene
CPT/HCPCS: 36415; 80053; 82306; 84425; 85025; 85652; 86038; 86039; 86140; 86160; 86225; 99212

== ENCOUNTER 2025-07-11 14:21 | Outpatient (AMB) | payer OTHER, SELFPAY ==
[2025-07-11 14:24] VITALS: BP 106/68; PULSE 89; O2SAT 97; BMI 32.2
--- NOTE | 2025-07-11 14:24 | MHC.PC.OV ---
Vital Signs 07/11/25 14:24 Height 5 ft Weight 165 lb BMI 32.2 BP 106/68 Blood Pressure Location Lt brachial Position Sitting Pulse 89 Pulse Source Pulse Oximeter Pulse Oximetry (%) 97 Oxygen Delivery Method Room Air Intake Visit Reasons: Follow up Intake Note: Pt is here today for a follow up visit after being seen in a walk in for work injury. Allergies kiwi Allergy (Intermediate, Verified 07/11/25 14:25) throat itching, tongue swelling phentermine Allergy (Intermediate, Verified 07/11/25 14:25) Agitation and tachycardia doxycycline (DOXYCYCLINE) Allergy (Unknown, Verified 07/11/25 14:25) HIVES penicillin V Allergy (Unknown, Verified 07/11/25 14:25) hives Penicillins (PENICILLINS) Allergy (Unknown, Verified 07/11/25 14:25) HIVES Sulfa (Sulfonamide Antibiotics) Allergy (Unknown, Verified 07/11/25 14:25) rash sulfamethoxazole (From BACTRIM) Allergy (Unknown, Verified 07/11/25 14:25) HIVES trimethoprim (From BACTRIM) Allergy (Unknown, Verified 07/11/25 14:25) HIVES Medication List - Last Reconciled 07/11/25 by Luci Ny MD cholecalciferol (vitamin D3) 125 mcg PO DAILY meclizine 12.5 mg PO TID PRN riboflavin (vitamin B2) 400 mg PO DAILY 90 days sumatriptan succinate 50 - 100 mg orally at onset of headache, may repeat in 2 hrs PRN; max 2 tabs per day or 4 tabs/week (may take with Ibuprofen) 30 days thiamine HCl (vitamin B1) 100 mg PO DAILY Zepbound (tirzepatide (weight loss)) 15 mg (0.5 mL) subcut QWEEK NS Tobacco use date assessed: 07/11/25 Dental Screening Dental Screen Date: 02/26/25 HPI Follow up HPI Details 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 She reports lower back pain worse when standing and turning to the side. She denies pain radiating to lower extremities weakness or numbness in extremities change in bowel bladder function. Patient has been back to work and would like to try physical therapy [facility] Medical History Seizure Migraines Obesity Lumbar back pain Dyshidrotic eczema Kidney stones Surgical History H/O lithotripsy Family History Mother Diabetes Father Diabetes HTN (hypertension) Maternal Grandmother CVD (cardiovascular disease) Maternal Grandfather Alzheimer disease Social History Household Members Other:: 3 children, 6 yr, 3 yr 2 month old baby Housing: Apartment Alcohol intake: current Alcohol intake frequency: holidays/special occasions only Patient Tobacco Use Status: Never used Tobacco e-Cigarette/Vaping Use: Never Used service: No Current occupational status: employed Cognitive needs: No Hearing needs: No Vision needs: Yes Questionnaire Thrive Questionnaire Date Thrive assessed: 09/04/24 What is your living situation today?: I have a steady place to live Within the past 12 months, did the food you bought not last and you didn't have the money to get more?: Never true Within the past 12 months, did you worry whether your food would run out before you got money to buy more?: Never true Do you have trouble paying for medicines?: No Do you have trouble getting transportation to medical appointments?: No Do you have trouble paying your heating and electricity bill?: Yes Do you have trouble taking care of your child, family member or friend?: No Do you have trouble with day-to-day activities such as bathing, preparing meals, shopping, managing finances, etc.?: No Are you currently unemployed and looking for a job?: No Are you interested in more education?: No Currently or been in a relationship where the following occur: No concerns reported THRIVE Score: 1 DONTRELL-7 AMB Questionnaire DONTRELL-7 Date DONTRELL - 7 assessed: 09/04/24 Source: Developed by Drs. Benjamin Alvarez, Nanci Child, Oscar Dooley and colleagues, with an educational elizabeth from [employer] Review of Systems Const All systems reviewed & are unremarkable except as noted in HPI and below Eyes Reports no additional complaints ENT Reports no additional complaints Card Reports no additional complaints Resp Reports no additional complaints GI Reports no additional complaints Reports no additional complaints Physical exam (Primary Care) Vital Signs: Last Vital Signs Pulse 89 07/11/25 14:24 BP 106/68 07/11/25 14:24 Pulse Ox 97 07/11/25 14:24 Oxygen Delivery Method Room Air 07/11/25 14:24 BMI result Body Mass Index 32.2 Tobacco/Smoking Status: Tobacco use Status Tobacco use date assessed 07/11/25 07/11/25 14:39 Patient Tobacco Use Status Never used Tobacco 07/11/25 14:25 e-Cigarette/Vaping Use Never Used 07/11/25 14:25 Thrive Assessment: Date of Thrive Assessment Date Thrive assessed 09/04/24 07/11/25 14:25 Currently or been in a relationship where the following occur: No concerns reported Const General: no acute distress HENMT Head: Yes normal to inspection Resp Effort & Inspection: normal respiratory effort Auscultation: clear to auscultation bilaterally Cardio Rhythm: regular rhythm Heart sounds: S1 normal heart sound present and S2 normal heart sound present Back/Spine/Pelvis Other: Paraspinal tenderness in the lower lumbar region, straight leg rising 90 degrees bilaterally deep tendon reflexes 2+ bilaterally Thoracic/Lumbar Spine: thoracic and lumbar spine normal to inspection Coding Level of Care Code Est Pt Level 3 (88326) Diagnoses Lower back injury S39.92XA Assessment & Plan Assessment & Plan (1) Lower back injury: Code(s): S39.92XA - Unspecified injury of lower back, initial encounter Category: Medical Plan: Referred to physical therapy Orders: Orders PT Evaluation and Treatment Today M54.50 - Low back pain, unspecified
== END 2025-07-11 15:03 | disposition home or self-care (01) ==
LOC: HO.HMCC 14:22
PROVIDERS: PCP Internal Medicine; Visit Provider Internal Medicine
DX: S39.92XA Unspecified injury of lower back, initial encounter (principal)